=== PATIENT | female | born 1935 | race Caucasian/White ===

== ENCOUNTER → 2016-12-05 | Outpatient (REF) | payer MEDICARE, BC ==
[~2016-12-05] MED LIST: ATOR1TAB19 PO; CIPR500T89 PO; FLAG500T PO; IBUPOTC PO; LISI10TA2 PO; SALI0.653; SYNT75TA PO
== END ==
LOC: M LAB REF 12:47
PROVIDERS: ATTEND Nurse Practitioner Adult Health
DX: J02.9 Acute pharyngitis, unspecified (principal)

== ENCOUNTER 2016-12-08 21:06 | Inpatient (IN) | payer MEDICARE, BC ==
[~2016-12-08] VITALS: Ht 157.5 cm; Wt 67.2 kg
[2016-12-08] MEDS ORDERED: NS 1,000 ML IV ONE (21:45)
[2016-12-08 21:53] LABS: INR 0.92
[2016-12-08 22:03] LABS: ALBUMIN/GLOBULIN RATIO 0.98 (1.00-1.93); ALKALINE PHOSPHATASE 105 U/L (45-117); ALT/SGPT 25 U/L (12-78); ANION GAP 10 MEQ/L (8-16); AST/SGOT 16 U/L (15-37); BILIRUBIN,DIRECT < 0.1 MG/DL (0.0-0.2); BILIRUBIN,TOTAL 0.3 MG/DL (0.2-1.0); BLOOD UREA NITROGEN 26 MG/DL (7-18); CALCIUM LEVEL 9.2 MG/DL (8.8-10.2); CARBON DIOXIDE LEVEL 27 MEQ/L (21-32); CHLORIDE LEVEL 101 MEQ/L (98-107); CREATININE FOR GFR 1.29 MG/DL (0.55-1.02); GLOMERULAR FILTRATION RATE 42.1 (>32); GLUCOSE, FASTING 180 MG/DL (83-110); POTASSIUM SERUM 3.8 MEQ/L (3.5-5.1); SODIUM LEVEL 138 MEQ/L (136-145); TOTAL PROTEIN 8.1 GM/DL (6.4-8.2)
[2016-12-08 22:05] LABS: MEAN CORPUSCULAR HEMOGLOBIN 29.7 pg (27.0-33.0); MEAN CORPUSCULAR HGB CONC 32.3 g/dl (32.0-36.5); MEAN CORPUSCULAR VOLUME 91.8 fl (80.0-96.0); PLATELET COUNT, AUTOMATED 342 k/mm3 (150-450); RED CELL DISTRIBUTION WIDTH 14.5 % (11.5-14.5); WHITE BLOOD COUNT 19.6 K/mm3 (4.0-10.0)
[2016-12-08 22:27] LABS: BANDS 13 % (< 11); EOSINOPHILS 1 % (0-5)
[2016-12-08] MEDS ORDERED: ISOVUE-370 76% 100ML VIAL (Q9967) As Ordered ONE (23:35)
[2016-12-09] VITALS (7 sets, daily range): BP systolic 119–169; BP diastolic 52–72
--- NOTE | 2016-12-09 00:20 | REPUSA ---
CLINICAL HISTORY: Abdominal pain. TECHNIQUE: Multiple axial, sagittal and coronal CT images were obtained through the abdomen and pelvi s after administration of oral and intravenous contrast material. COMMENTS: Small sliding hiatal hernia. Fluid-filled small bowels. Uncomplicated colonic diverticulosis. Mildly thickened bladder. The liver is mildly enlarged decreased attenuation without mass or defect. There is no intra or extra hepatic biliary ductal dilatation. The spleen is normal. The gallbladder is within normal limits. The pancreas is of normal contour and attenuation characteristics. There is no evidence of adrenal mass. Both kidneys demonstrate prompt and equal nephrograms. 3.5 cm left renal simple cyst. The kidneys are normal in size, shape and configuration. There is no evidence of renal or ureteral mass. No renal or ureteral calculi are identified. There is no hydroureter or hydronephrosis. No evidence for appendicitis. There is no bowel wall thickening. No evidence for small or large mahin l obstruction. There is no evidence of abdominal ascites or lymphadenopathy. There is no evidence of intrinsic or extrinsic bladder mass. There is no pelvic ascites or lymphadeno amber. Images of the lung bases show no evidence of pleural or parenchymal mass. There are no pleural effusi ons. 3.8 cm left lower lobe bulla. The bony structures are free of lytic or blastic lesions. Multilevel degenerative changes are seen in volving the thoracolumbar spine. Scattered calcifications are seen involving the aorta and major bran ches compatible with atherosclerosis. IMPRESSION: Enteritis. Uncomplicated diverticulosis. Mild hepatomegaly with fat infiltration. Thickened bladder. Underdistention versus mild cystitis. Small sliding-type hiatal hernia. Thank you for your kind referral of this patient.
[2016-12-09] MEDS ORDERED: CIPROFLOXACIN 400 MG in APPROPRIATE DILUENT 1 EA IV ONE (00:30)
[2016-12-09] MEDS ORDERED: metroNIDAZOLE 500 MG in APPROPRIATE DILUENT 1 EA IV ONE (00:30)
--- NOTE | 2016-12-09 00:30 | REPUSA ---
CLINICAL HISTORY: Swelling. TECHNIQUE: Multiple axial CT images were obtained through the neck with IV contrast material. MPR cor onal and sagittal sequences were obtained. COMMENTS: Bilateral mildly prominent submandibular lymph nodes with the largest on the left side measuring 1.4 cm. The oropharyngeal soft tissues are normal and bilaterally symmetric. The piriform sinuses are normal. There is no supra or infraglottic laryngeal mass. The proximal trachea is normal. There is no paravertebral soft tissue mass. The salivary glands are normal. The paravertebral soft ti ssue space is normal. Limited images through the posterior fossa demonstrate no evidence for tonsilar herniation. Evaluation of the visualized lung apices reveals no evidence for abnormality. There is no evidence for abnormal enhancement. Bilateral changes of bronchitis. Bilateral apical pulmonary consolidations. IMPRESSION: Bilateral mildly prominent submandibular lymph nodes with the largest on the left side measuring 1.4 cm. Thank you for your kind referral of this patient.
[2016-12-09] MEDS ORDERED: NS 1,000 ML IV ONE (00:45)
[2016-12-09] MEDS ORDERED: METOCLOPRAMIDE INJ 10MG/2ML VIAL (J2765) IV PRN (01:00)
[2016-12-09] MEDS ORDERED: IBUPOTC PO (01:49)
[2016-12-09] MEDS ORDERED: SYNT75TA PO (01:49)
[2016-12-09] MEDS ORDERED: SALI0.653 (01:49)
[2016-12-09] MEDS ORDERED: LISI10TA2 PO (01:49)
[2016-12-09] MEDS ORDERED: ATOR1TAB19 PO (01:49)
[2016-12-09] MEDS: NS 1,000 ML IV SCH ×2 (03:29→14:55)
[2016-12-09 05:20] LABS: BASO % 0.1 % (0.0-1.0); EOS % 0.1 % (0.0-3.0); LARGE UNSTAINED CELL # 0.1 K/mm3 (0.0-0.4); LARGE UNSTAINED CELL % 0.8 % (0.0-4.0); LYMPH # 0.3 K/mm3 (1.5-4.5); LYMPH % 2.4 % (24.0-44.0); MEAN CORPUSCULAR HEMOGLOBIN 29.4 pg (27.0-33.0); MEAN CORPUSCULAR HGB CONC 32.7 g/dl (32.0-36.5); MEAN CORPUSCULAR VOLUME 89.8 fl (80.0-96.0); MONO # 0.3 K/mm3 (0.0-0.8); MONO % 2.5 % (0.0-5.0); NEUTROPHILS # 11.9 K/mm3 (1.8-7.7); NEUTROPHILS % 94.1 % (36.0-66.0); PLATELET COUNT, AUTOMATED 271 k/mm3 (150-450); RED CELL DISTRIBUTION WIDTH 14.5 % (11.5-14.5); WHITE BLOOD COUNT 12.6 K/mm3 (4.0-10.0)
[2016-12-09 05:31] LABS: MAGNESIUM LEVEL 1.8 MG/DL (1.8-2.4)
[2016-12-09] MEDS: LEVOTHYROXINE 0.075 MG TAB (75 MCG) PO SCH (06:33)
--- NOTE | 2016-12-09 06:50 | ECGEPIP ---
Stationary ECG Study [facility] - ED Test Date: 2016-12-08 Pat Name: EL STOVALL Department: Room: [place] [address] Gender: F Flatbed Owner Operator: SorensonB: [id number] Requested By: BALJIT Singh Order Number: [id number] Reading MD: Ozzie Eldridge Measurements Intervals [place] Rate: 109 P: NM: 0 QRS: 66 QRSD: 101 T: 59 QT: 340 QTc: 458 Interpretive Statements ATRIAL FIBRILLATION WITH RAPID VENTRICULAR RESPONSE NO PRIORS Electronically Signed On 12-09-2016 6:49:45 EDT by Ozzie Eldridge
--- NOTE | 2016-12-09 07:57 | HPE ---
DATE OF ADMISSION: 12/08/2016 PRIMARY CARE PROVIDER: Dr. Luca Shaikh. CHIEF COMPLAINT: Diarrhea since 5:00 pm on 12/08/2016 and one episode of syncope at home while having bowel movement. PAST MEDICAL HISTORY: Hypertension. Hyperlipidemia. Hypothyroidism. Gastroesophageal reflux disease. 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 Arthritis. Chronic dry eyes. Allergies. Cataracts. History of breast cancer times two. Osteoporosis. HISTORY OF PRESENT ILLNESS: This is an 81-year-old female who lives alone who was in her usual state of health. Yesterday, she had some left over chili for lunch. After that, she had a little bit of gas but otherwise felt well. Then at around 5:00 pm, while she was watching television, she suddenly felt discomfort in her belly and had to nagy to the bathroom and starting having diarrhea. She had diarrhea innumerable times. During one of the times, while she was sitting on the commode, she became cold, clammy, hot, and passed out and fell on the floor. It took her a couple of minutes to get off of the floor and then she went to her bed and laid down. She went to the bathroom a couple more times but after that she was feeling very weak and hardly could get up. She was dizzy and lightheaded so she continued to lay down in bed and her stool was dripping out of her in an uncontrolled fashion. She became incontinent of stool. At that point, she called an ambulance and was brought to the emergency room. In the emergency department, she continued to have diarrhea several times. Stool was collected and sent for examination. The patient was noted to be very tachycardic on arrival to about 118 to 125. She was noted to have an elevated white count of 19.6 and elevated creatinine of 1.2. She was found to be dehydrated and started on IV fluids. CT scan of the abdomen was done which revealed enteritis. There was also diverticulosis but no signs of diverticulitis. Sliding type hiatal hernia. The patient was started on Cipro and Flagyl and the hospital service was consulted for admission for enteritis, diarrhea, dehydration and syncope. PAST SURGICAL HISTORY: Mastectomy for breast cancer on the right in 1997. Left mastectomy in 1971. Colonoscopy in 2001. Breast implant removal in 2005. Toe surgery repair in 2011. ALLERGIES: DRISDOL - nausea, vomiting. FAMILY HISTORY: Father with history of stomach cancer. Mother with history of lung cancer. Siblings: sister with breast cancer. SOCIAL HISTORY: Former smoker who quit smoking greater than 10 years ago. Does not abuse alcohol or recreational drugs. HOME MEDICATIONS: - atorvastatin 5 mg daily - Ibuprofen 200 mg by mouth at bedtime as needed pain - Synthroid 75 mcg daily - lisinopril/hydrochlorothiazide one tablet by mouth daily - saline nasal spray REVIEW OF SYSTEMS: The patient denied any fever or chills. Denied any abdominal pain. Did have one episode of vomiting. Did not have any nausea. Did not have any hematochezia or melena. Denies any dysuria or hematuria. Denies any chest pain, any cough or phlegm. PHYSICAL EXAMINATION: VITAL SIGNS: Temperature 97.3, pulse 114, blood pressure 37/63, pulse oxymetry 94% in room air. GENERAL: The patient awake, alert, oriented times three in no acute distress. HEENT: Normocephalic, atraumatic. Moist mucous membranes. Anicteric eyes. CHEST: Clear to auscultation. CARDIOVASCULAR: S1, S2 regular. No rales, murmur, or gallop. ABDOMEN: Mildly distended, obese, soft, nontender. Bowel sounds hyperperistaltic. EXTREMITIES: No edema. LABORATORY DATA: WBC 19.6, hemoglobin 13.9, platelet 342. Sodium 138, potassium 3.8, chloride 101, bicarbonate 27, BUN 26, creatinine 1.29, glucose 118. Liver function tests are normal. Lipase 106. INR 0.92. Radiologic CT scan of the abdomen reviewed. ASSESSMENT: This is an 81-year-old female admitted for diarrhea, dehydration due to enteritis and syncope. PLAN: For diarrhea and dehydration and enteritis, will continue the patient on Cipro and Flagyl. Will continue with IV fluids. For hydration, clear liquid diet. Will followup tests from the gastrointestinal panel results and modify treatment accordingly. Hypertension: The patient is on lisinopril and hydrochlorothiazide at home. However, at this point, the patient appears dehydrated and blood pressure is also in the low normal range so we will hold lisinopril and hydrochlorothiazide now. Hypothyroid: Will continue with Synthroid. Hyperlipidemia: Will continue with atorvastatin. Deep venous thrombosis prophylaxis has been ordered.
[2016-12-09] MEDS ORDERED: ATORVASTATIN 10 MG TAB PO SCH (09:00)
--- NOTE | 2016-12-09 09:21 | REP ---
ABDOMINAL SERIES: Cross table lateral and supine film of the abdomen and pelvis demonstrate no evidence of free air and no compelling evidence for obstruction. Air is scattered throughout the GI tract without significantly dilated small bowel loops. There appear to be phleboliths in the pelvis. There are mild degenerative changes of the spine. An accompanying view of the chest demonstrates mild chronic interstitial fibrosis with mild apical pleural thickening. No infiltrates are seen. The heart is not enlarged. There is prominent soft tissue in the aortopulmonic window which may represent some degree of dilatation of the thoracic aorta. I cannot exclude underlying adenopathy. CT of the chest with IV contrast is recommended. IMPRESSION: No free air or obstruction. Possible dilated aortic arch or underlying adenopathy. Recommend CT chest with IV contrast. Signed by Josh Nava MD 12/10/2016 04:00 P
[2016-12-09] MEDS: ENOXAPARIN 30 MG/0.3 ML SYR (J1650) SC SCH (09:32)
[2016-12-09] MEDS: metroNIDAZOLE 500 MG in APPROPRIATE DILUENT 1 EA IV SCH ×2 (09:32→18:20)
--- NOTE | 2016-12-09 12:03 | IPNPDOC ---
Subjective Date Seen The patient was seen on 12/09/16. Subjective Chief Complaint/HPI The patient is a 81-year-old female admitted with a reason for visit of Enteritis, Syncope. General: Denies: ROS Unobtainable, Chills, Night Sweats, Fatigue, Malaise, Normal Appetite, Other Symptoms Constitutional: Denies: Chills, Fever, Malaise, Night Sweats, Weakness, Fatigue , Weight Loss, Lethargy, Other Eyes: Denies: Pain, Vision change, Conjunctivae inflammation, Eyelid inflammation, Redness, Other ENT: Denies: Head Aches, Ear Pain, Dysphagia, Sinus Congestion, Post Nasal Drip , Sore Throat, Epistaxis, Other Symptoms Skin: Denies: Rash, Lesions, Jaundice, Bruising, Itching, Dry, Breakdown, Nail Changes, Other Pulmonary: Denies: Dyspnea, Cough, Pleuritic Chest Pain, Other Symptoms Cardiovascular: Denies: Chest Pain, Palpitations, Orthopnea, Paroxysmal Noc. Dyspnea, Edema, Lt Headedness, Other Symptoms Gastrointestinal: Reports: Diarrhea, Denies: Nausea, Vomiting, Abdominal Pain, Constipation, Melena, Hematochezia , Other Symptoms Genitourinary: Reports: Frequency, Denies: Dysuria, Incontinence, Hematuria, Retention, Other Symptoms Objective Physical Examination General Exam: Positive: Alert, Cooperative, No Acute Distress Eye Exam: Positive: PERRLA, Conjunctiva & lids normal, EOMI, Negative: Sclera icteric ENT Exam: Positive: Atraumatic Neck Exam: Positive: Supple Chest Exam: Positive: Clear to auscultation, Normal air movement Heart Exam: Positive: Tachycardic, Regular Rhythm Telemetry: Positive: Tachycardia Abdomen Exam: Positive: Normal bowel sounds, Soft, Negative: Tenderness Extremity Exam: Negative: Edema Psych Exam: Positive: Oriented x 3 Assessment /Plan Problems (1) Enteritis Status: Acute Response to Treatment: Improving Discussed With: Patient Problem Specific Plan: Monitor Clinically, Repeat Labs Problem Text: Continue IV antibiotics, IV fluids. (2) Diarrhea Status: Acute Response to Treatment: Improving Discussed With: Patient Problem Specific Plan: Monitor Clinically, Repeat Labs (3) Syncope Status: Acute Discussed With: Patient Problem Specific Plan: Monitor Clinically, Repeat Tests (4) HTN (hypertension) Status: Chronic Discussed With: Patient Problem Specific Plan: Monitor Clinically (5) Hyperlipidemia Status: Chronic Discussed With: Patient (6) GERD (gastroesophageal reflux disease) Status: Chronic Discussed With: Patient (7) Hypothyroidism Status: Chronic Discussed With: Patient Problem Specific Plan: Monitor Clinically, Repeat Labs Problem Text: Check thyroid panel (8) Breast cancer Status: Chronic Discussed With: Patient Problem Specific Plan: Monitor Clinically Problem Text: s/p chemo/RT and b/l mastectomy submandibular lymph nodes noted on ct neck could likely follow up as o/p with oncology (9) Tachycardia Status: Chronic Discussed With: Patient Problem Specific Plan: Monitor Clinically Problem Text: Patient states known history of chronic tachycardia. Will check thyroid panel. (10) Basal cell carcinoma Status: Chronic Discussed With: Patient Problem Text: History of basal cell cancer of the forehead. Plan/VTE VTE Prophylaxis Ordered?: Yes Plan IVF: Continue Diet: Continue Current Activity: Continue Current Therapy: PT Diagnostics: Repeat Labs in AM Anticipated Discharge: Home With Services Iv antibiotics. IV fluids. 2D echo pending. orthostatics. Thyroid panel. Monitor telemetry. Patient lives alone, PFS for possible home health. PT eval/treat VS, I&O, 24H, [facility] Vital Signs/I&O Vital Signs Date Time Temp Pulse Resp B/P (MAP) Pulse Ox O2 Delivery O2 Flow Rate FiO2 12/09/16 08:00 99.1 76 20 119/57 (77) 97 Room Air I&O- Last 24 Hours up to 6 AM 12/09/16 06:00 Intake Total 2550 ml Output Total 0 ml Balance 2550 ml Laboratory Data 24H LABS Laboratory Tests 2 12/08/16 21:19: Neutrophils 78H, Band Neutrophils 13H, Lymphocytes (Manual) 1L, Monocytes ( Manual) 7, Eosinophils (Manual) 1, Platelet Estimate NORMAL, Red Blood Cell Morphology NORMAL, Prothrombin Time 12.5, Prothromb Time International Ratio 0.92, Activated Partial Thromboplast Time 23.0L, Anion Gap 10, Glomerular Filtration Rate 42.1, Calcium Level 9.2, Aspartate Amino Transf (AST/SGOT) 16, Alanine Aminotransferase (ALT/SGPT) 25, Alkaline Phosphatase 105, Total Bilirubin 0.3, Direct Bilirubin < 0.1, Total Protein 8.1, Albumin 4.0, Albumin/ Globulin Ratio 0.98L, Lipase 106 12/09/16 04:23: White Blood Count 12.6H, Red Blood Count 3.84L, Hemoglobin 11.3#L, Hematocrit 34.5L, Mean Corpuscular Volume 89.8, Mean Corpuscular Hemoglobin 29.4, Mean Corpuscular Hemoglobin Concent 32.7, Red Cell Distribution Width 14.5, Platelet Count 271, Neutrophils (%) (Auto) 94.1H, Lymphocytes (%) (Auto) 2.4L, Monocytes (%) (Auto) 2.5, Eosinophils (%) (Auto) 0.1, Basophils (%) (Auto) 0.1, Neutrophils # (Auto) 11.9H, Lymphocytes # (Auto) 0.3L, Monocytes # (Auto) 0.3, Eosinophils # (Auto) 0.0, Basophils # (Auto) 0.0, Large Unclassified Cells % 0.8 , Large Unclassified Cells # 0.1, Magnesium Level 1.8 CBC/BMP Laboratory Tests 12/08/16 21:19 Red Blood Count 4.67, Mean Corpuscular Volume 91.8, Mean Corpuscular Hemoglobin 29.7, Mean Corpuscular Hemoglobin Concent 32.3, Red Cell Distribution Width 14.5 12/09/16 04:23 Red Blood Count 3.84 L, Mean Corpuscular Volume 89.8, Mean Corpuscular Hemoglobin 29.4, Mean Corpuscular Hemoglobin Concent 32.7, Red Cell Distribution Width 14.5, Neutrophils (%) (Auto) 94.1 H, Lymphocytes (%) (Auto) 2.4 L, Monocytes (%) (Auto) 2.5, Eosinophils (%) (Auto) 0.1, Basophils (%) (Auto ) 0.1, Neutrophils # (Auto) 11.9 H, Lymphocytes # (Auto) 0.3 L, Monocytes # ( Auto) 0.3, Eosinophils # (Auto) 0.0, Basophils # (Auto) 0.0 Microbiology Microbiology 12/08/16 Blood Culture, Received Pending 12/08/16 Blood Culture, Received Pending 12/09/16 Gastrointestinal Tract Panel (PCR) - Final, Complete KANU MONTE MD December 09, 2016 12:03
[2016-12-09] MEDS: CIPROFLOXACIN 400 MG in APPROPRIATE DILUENT 1 EA IV SCH (13:16)
[2016-12-09 13:56] LABS: THYROXINE (T4) 9.9 UG/DL (4.5-12.0)
--- NOTE | 2016-12-09 15:57 | REPUSA ---
CT of the head Clinical history: trauma. Protocol: Multiple axial CT images obtained with 5 mm slice thickness were obtained through the head without administration of contrast. Findings: The ventricles and sulci are symmetric but prominent in size bilaterally. There are periven tricular areas of low attenuation throughout the deep white matter. There is no evidence of acute hem orrhage or infarct. There is no midline shift, mass effect, or extra-axial fluid collection. The osse ous structures are unremarkable. The visualized paranasal sinuses and mastoid air cells are clear. Impression: No acute hemorrhage or infarct. Findings are consistent with minimal age-related atrophy and chronic small vessel ischemic disease.
[2016-12-09] MEDS: ATORVASTATIN 5MG PER 1/2 TABLET PO SCH (21:22)
[2016-12-10 06:00] VITALS: BP 164/92
[2016-12-10] MEDS: LEVOTHYROXINE 0.075 MG TAB (75 MCG) PO SCH (06:00)
[2016-12-10] MEDS: NS 1,000 ML IV SCH ×2 (06:00→08:45)
[2016-12-10] MEDS: CIPROFLOXACIN 400 MG in APPROPRIATE DILUENT 1 EA IV SCH ×2 (06:05→12:18)
[2016-12-10] MEDS: metroNIDAZOLE 500 MG in APPROPRIATE DILUENT 1 EA IV SCH ×2 (06:08→10:38)
[2016-12-10 06:45] LABS: BASO % 0.1 % (0.0-1.0); EOS # 0.3 K/mm3 (0.0-0.50); EOS % 3.2 % (0.0-3.0); LARGE UNSTAINED CELL # 0.2 K/mm3 (0.0-0.4); LARGE UNSTAINED CELL % 2.5 % (0.0-4.0); LYMPH # 1.4 K/mm3 (1.5-4.5); LYMPH % 17.1 % (24.0-44.0); MEAN CORPUSCULAR HEMOGLOBIN 29.2 pg (27.0-33.0); MEAN CORPUSCULAR HGB CONC 32.4 g/dl (32.0-36.5); MEAN CORPUSCULAR VOLUME 90.1 fl (80.0-96.0); MONO # 0.5 K/mm3 (0.0-0.8); MONO % 5.6 % (0.0-5.0); NEUTROPHILS % 71.4 % (36.0-66.0); PLATELET COUNT, AUTOMATED 268 k/mm3 (150-450); RED CELL DISTRIBUTION WIDTH 14.7 % (11.5-14.5); WHITE BLOOD COUNT 8.4 K/mm3 (4.0-10.0)
[2016-12-10 06:55] LABS: ANION GAP 8 MEQ/L (8-16); BLOOD UREA NITROGEN 9 MG/DL (7-18); CALCIUM LEVEL 7.9 MG/DL (8.8-10.2); CARBON DIOXIDE LEVEL 22 MEQ/L (21-32); CHLORIDE LEVEL 114 MEQ/L (98-107); CREATININE FOR GFR 0.81 MG/DL (0.55-1.02); GLOMERULAR FILTRATION RATE > 60.0 (>32); GLUCOSE, FASTING 94 MG/DL (83-110); POTASSIUM SERUM 3.5 MEQ/L (3.5-5.1); SODIUM LEVEL 144 MEQ/L (136-145)
[2016-12-10] MEDS: ENOXAPARIN 30 MG/0.3 ML SYR (J1650) SC SCH (09:00)
[2016-12-10] MEDS: LISINOPRIL 10 MG TAB PO SCH (11:51)
[2016-12-10] MEDS: LACTOBACILLUS ACIDOPHILUS CAP (BACID) PO SCH ×2 (12:18→21:18)
[2016-12-10 14:00] VITALS: BP 159/74
--- NOTE | 2016-12-10 17:19 | IPNPDOC ---
Subjective Date Seen The patient was seen on 12/10/16. Subjective Chief Complaint/HPI The patient is a 81-year-old female admitted with a reason for visit of Enteritis, Syncope. Objective Physical Examination General Exam: Positive: Alert, Cooperative, No Acute Distress Eye Exam: Positive: PERRLA, Conjunctiva & lids normal, EOMI ENT Exam: Positive: Atraumatic Neck Exam: Positive: Supple Chest Exam: Positive: Clear to auscultation, Normal air movement Heart Exam: Positive: Tachycardic, Regular Rhythm Telemetry: Positive: Tachycardia Abdomen Exam: Positive: Normal bowel sounds, Soft Extremity Exam: Negative: Edema Psych Exam: Positive: Oriented x 3 Assessment /Plan Problems (1) Enteritis Status: Acute Response to Treatment: Improving Discussed With: Patient Problem Specific Plan: Monitor Clinically, Repeat Labs Problem Text: Switch to PO antibiotics, PO fluids. Advance diet and monitor (2) Diarrhea Status: Acute Response to Treatment: Improving Discussed With: Patient Problem Specific Plan: Monitor Clinically, Repeat Labs (3) Syncope Status: Acute Discussed With: Patient Problem Specific Plan: Monitor Clinically, Repeat Tests Problem Text: associated with significant diarrhea echo result pending (4) HTN (hypertension) Status: Chronic Discussed With: Patient Problem Specific Plan: Monitor Clinically Problem Text: restart home lisinopril (5) Hyperlipidemia Status: Chronic Discussed With: Patient (6) GERD (gastroesophageal reflux disease) Status: Chronic Discussed With: Patient (7) Hypothyroidism Status: Chronic Discussed With: Patient Problem Specific Plan: Monitor Clinically, Repeat Labs Problem Text: TSH wnl (8) Breast cancer Status: Chronic Discussed With: Patient Problem Specific Plan: Monitor Clinically Problem Text: s/p chemo/RT and b/l mastectomy submandibular lymph nodes noted on ct neck could likely follow up as o/p with oncology/primary care (9) Tachycardia Status: Chronic Discussed With: Patient Problem Specific Plan: Monitor Clinically Problem Text: Patient states known history of chronic tachycardia. Will check thyroid panel. (10) Basal cell carcinoma Status: Chronic Discussed With: Patient Problem Text: History of basal cell cancer of the forehead. Plan/VTE VTE Prophylaxis Ordered?: Yes Plan IVF: Continue Diet: Continue Current Activity: Continue Current Therapy: PT Diagnostics: Repeat Labs in AM Anticipated Discharge: Home With Services VS, I&O, 24H, Fishbone Vital Signs/I&O Vital Signs Date Time Temp Pulse Resp B/P (MAP) Pulse Ox O2 Delivery O2 Flow Rate FiO2 12/10/16 14:00 98.4 107 18 159/74 (102) 98 Room Air I&O- Last 24 Hours up to 6 AM 12/10/16 06:00 Intake Total 3555 ml Output Total 975 ml Balance 2580 ml Laboratory Data 24H LABS Laboratory Tests 2 12/09/16 18:25: Urine Appearance CLEAR, Urine Color STRAW, Urine pH 5.0, Urine Specific [place] 1.006, Urine Protein NEGATIVE, Urine Glucose (UA) NEGATIVE, Urine Ketones NEGATIVE, Urine Urobilinogen 0.2, Urine Bilirubin NEGATIVE, Urine Leukocyte Esterase TRACEH, Urine Blood 2+H, Urine Nitrite NEGATIVE, Urine WBC (Auto) 1, Urine RBC (Auto) 2, Urine Hyaline Casts (Auto) 0, Urine Bacteria (Auto) NEGATIVE , Urine Squamous Epithelial Cells 0, Urine Amorphous Sediment SMALLH, Urine Mucus (Auto) SMALL, Urine Sperm (Auto) 12/10/16 06:12: White Blood Count 8.4, Red Blood Count 3.63L, Hemoglobin 10.6L, Hematocrit 32.7L , Mean Corpuscular Volume 90.1, Mean Corpuscular Hemoglobin 29.2, Mean Corpuscular Hemoglobin Concent 32.4, Red Cell Distribution Width 14.7H, Platelet Count 268, Neutrophils (%) (Auto) 71.4H, Lymphocytes (%) (Auto) 17.1L, Monocytes (%) (Auto) 5.6H, Eosinophils (%) (Auto) 3.2H, Basophils (%) (Auto) 0.1 , Neutrophils # (Auto) 6.0, Lymphocytes # (Auto) 1.4L, Monocytes # (Auto) 0.5, Eosinophils # (Auto) 0.3, Basophils # (Auto) 0.0, Large Unclassified Cells % 2.5 , Large Unclassified Cells # 0.2, Anion Gap 8, Glomerular Filtration Rate > 60.0 , Blood Urea Nitrogen 9#, Creatinine 0.81, Sodium Level 144, Potassium Level 3.5 , Chloride Level 114H, Carbon Dioxide Level 22, Calcium Level 7.9L CBC/BMP Laboratory Tests 12/10/16 06:12 Red Blood Count 3.63 L, Mean Corpuscular Volume 90.1, Mean Corpuscular Hemoglobin 29.2, Mean Corpuscular Hemoglobin Concent 32.4, Red Cell Distribution Width 14.7 H, Neutrophils (%) (Auto) 71.4 H, Lymphocytes (%) (Auto ) 17.1 L, Monocytes (%) (Auto) 5.6 H, Eosinophils (%) (Auto) 3.2 H, Basophils (% ) (Auto) 0.1, Neutrophils # (Auto) 6.0, Lymphocytes # (Auto) 1.4 L, Monocytes # (Auto) 0.5, Eosinophils # (Auto) 0.3, Basophils # (Auto) 0.0, Calcium Level 7.9 L Microbiology Microbiology 12/08/16 Blood Culture - Preliminary, Resulted No growth after 24 hours . All specim... 12/08/16 Blood Culture - Preliminary, Resulted No growth after 24 hours . All specim... 12/09/16 Stool Lactoferrin - Final, Complete 12/09/16 Gastrointestinal Tract Panel (PCR) - Final, Complete 12/09/16 Urine Culture, Received Pending OSVALDO HARTMAN MD December 10, 2016 17:19
[2016-12-10] MEDS: ATORVASTATIN 5MG PER 1/2 TABLET PO SCH (21:18)
[2016-12-10] MEDS: metroNIDAZOLE (FLAGYL) 500 MG TAB PO SCH (21:18)
[2016-12-10 22:00] VITALS: BP 152/85
[2016-12-11] MEDS: metroNIDAZOLE (FLAGYL) 500 MG TAB PO SCH (05:36)
[2016-12-11] MEDS: LEVOTHYROXINE 0.075 MG TAB (75 MCG) PO SCH (05:37)
[2016-12-11 05:59] LABS: BASO % 0.5 % (0.0-1.0); EOS # 0.3 K/mm3 (0.0-0.50); EOS % 5.3 % (0.0-3.0); LARGE UNSTAINED CELL # 0.1 K/mm3 (0.0-0.4); LARGE UNSTAINED CELL % 2.1 % (0.0-4.0); LYMPH # 1.6 K/mm3 (1.5-4.5); LYMPH % 23.2 % (24.0-44.0); MEAN CORPUSCULAR HEMOGLOBIN 29.2 pg (27.0-33.0); MEAN CORPUSCULAR HGB CONC 33.4 g/dl (32.0-36.5); MEAN CORPUSCULAR VOLUME 87.4 fl (80.0-96.0); MONO # 0.4 K/mm3 (0.0-0.8); MONO % 6.2 % (0.0-5.0); NEUTROPHILS # 3.9 K/mm3 (1.8-7.7); NEUTROPHILS % 62.6 % (36.0-66.0); PLATELET COUNT, AUTOMATED 259 k/mm3 (150-450); RED CELL DISTRIBUTION WIDTH 14.7 % (11.5-14.5); WHITE BLOOD COUNT 6.3 K/mm3 (4.0-10.0)
[2016-12-11 06:00] VITALS: BP 134/61
[2016-12-11] MEDS ORDERED: CIPROFLOXACIN 500 MG TAB PO SCH (06:00)
[2016-12-11 06:08] LABS: ANION GAP 8 MEQ/L (8-16); BLOOD UREA NITROGEN 6 MG/DL (7-18); CALCIUM LEVEL 7.5 MG/DL (8.8-10.2); CARBON DIOXIDE LEVEL 24 MEQ/L (21-32); CHLORIDE LEVEL 112 MEQ/L (98-107); CREATININE FOR GFR 0.78 MG/DL (0.55-1.02); GLOMERULAR FILTRATION RATE > 60.0 (>32); GLUCOSE, FASTING 97 MG/DL (83-110); POTASSIUM SERUM 3.3 MEQ/L (3.5-5.1); SODIUM LEVEL 144 MEQ/L (136-145)
[2016-12-11 09:05] VITALS: BP 143/68
[2016-12-11] MEDS: LISINOPRIL 10 MG TAB PO SCH (09:05)
[2016-12-11] MEDS: ENOXAPARIN 30 MG/0.3 ML SYR (J1650) SC SCH (09:05)
[2016-12-11] MEDS: LACTOBACILLUS ACIDOPHILUS CAP (BACID) PO SCH (09:05)
--- NOTE | 2016-12-11 09:16 | ECHO ---
DATE OF PROCEDURE: 12/09/2016 AGE: 81 GENDER: Female REFERRING PHYSICIAN: Dr. Anibal Perkins. HEIGHT: 62 inches. WEIGHT: 138 pounds. BODY SURFACE AREA: 1.64 sq m. INPATIENT: PCU Room 3229. INDICATION: Syncope. MEASUREMENTS: 2D MEASUREMENTS: RV - 3.8 cm LV- 3.2 cm Septum - 1.0 cm Posterior wall - 1.0 cm Aortic root - 3.1 cm LA - 3.2 cm LVEF - 75% DOPPLER MEASUREMENTS: AV - 1.8 m/s LVOT - 1.0 m/s MV-E: 89 A: 86 EA ratio 1.0 Early mitral deacceleration time 148 ms E-prime - 6 A-prime - 12 E/E prime ratio 14 PV - 1.1 m/s Pulmonary artery acceleration time 134 ms RVSP - 46-49 mmHg IVC - 1.9 cm COMMENT: Underlying sinus tachycardia with frequent PAC versus multifocal atrial tachycardia. Somewhat technically challenging study but diagnostically useful information was still obtained. Normal left atrial and left ventricular sizes. Right heart chamber sizes appear to be upper limits of normal to mildly dilated. Normal LV wall thickness. On real-time imaging from the parasternal and apical projections, wall motion appeared to be symmetrical and normal to hyperkinetic. Mildly thickened mitral annulus and leaflet edges but adequate leaflet excursion and no posterior systolic buckling. Three equal size aortic cusps with mild cusp edge thickening but adequate cusp separation. Normal aortic root size. No apparent intracardiac mass or pericardial effusion. Color flow Doppler study taken from the parasternal and apical projection showed trace aortic, mild mitral and mild to moderate tricuspid insufficiency. Guided continuous wave Doppler of her aortic valve showed a normal peak systolic velocity against LV outflow tract obstruction. Pulsed and continuous wave Doppler of her LV inflow tract taken from the apical four-chamber projection showed varying filling velocities related to her arrhythmia. No obvious sign of LV diastolic dysfunction. Current estimated mean left atrial pressure was upper limits of normal. Pulsed and continuous wave Doppler of her pulmonary trunk showed a normal peak systolic velocity against RV outflow tract obstruction. Guided continuous wave Doppler of her tricuspid valve allowed our estimation of her right ventricular systolic pressure (moderately increased). Her inferior vena cava was of normal size with normal respiratory collapse against an elevated central venous pressure at this time. CONCLUSIONS: Underlying sinus tachycardia with frequent PACs versus multifocal atrial tachycardia; not atrial fibrillation. Normal left ventricular size, wall thickness and hyperkinetic wall motion. Normal left atrial size and no clear Doppler evidence of an impairment of LV diastolic function. Current estimated mean left atrial pressure was within normal limits. At least borderline right heart chamber enlargement with normal contraction but Doppler evidence of moderate pulmonary hypertension. Normal IVC size and collapse against an elevated central venous pressure. Mild aortic valvular sclerosis with trace insufficiency. Mild mitral annular calcification with mild insufficiency. MTDD
[2016-12-11] MEDS ORDERED: CIPR500T89 PO (10:14)
[2016-12-11] MEDS ORDERED: FLAG500T PO (10:14)
[2016-12-11] MEDS ORDERED: POTASSIUM CHLORIDE 10 MEQ SR TABLET PO ONE (10:15)
--- NOTE | 2016-12-12 12:55 | DSES ---
DATE OF ADMISSION: 12/09/2016 DATE OF DISCHARGE: 12/11/2016 No specialists involved in her care. No complications during her stay. No procedures performed during her stay. DISCHARGE DIAGNOSES: 1. Enteritis. 2. Diarrhea. 3. Syncope. 4. Hypertension. 5. Hyperlipidemia. 6. Gastroesophageal reflux disease (GERD). 7. Hypothyroidism. 8. History of breast cancer. 9. Incidentally noted lymph nodes on CT scan of the neck. 10. Tachycardia. 11. Basal cell carcinoma. 12. Hypokalemia. SUMMARY OF HOSPITALIZATION: This is an 81-year-old who presented with a brief but intense episode of diarrhea, resulting in a syncopal event while having a bowel movement. She was brought to the hospital for evaluation and was admitted to the hospitalist service. She was found to be dehydrated and was started on IV fluids. CT scan of the abdomen showed enteritis. She was monitored on telemetry with no significant arrhythmia. She had a 2D echocardiogram during her stay which showed impaired left ventricular diastolic dysfunction, moderate pulmonary hypertension, preserved sytolic function. Stooling pattern improved quickly. She was started on Cipro and Flagyl and began to feel much better. She was tolerating a diet without pain. She was evaluated and cleared by physical therapy. On the day of discharge, she is feeling well. She has no complaints of pain, chest pain, shortness of breath. She feels ready to go home. I do answer a list of questions for her. She is an excellent list maker. Temperature is 98, pulse 84, respiratory rate 16, blood pressure 134/61, 95% on room air. She is awake, appropriately interactive. Breathing is symmetrical and rested. I:E ratio is 1:3. Heart is distant sounding, normal S1, S2. Abdomen is soft, doughy, nontender. LABORATORY DATA: Potassium is 3.3, creatinine 0.8. Hemoglobin 10.2, white cell count 6.3. DISCHARGE INSTRUCTIONS: Include the following: Followup with Dr. Shaikh 12/18/2016 at 1:15 p.m. Diet and activity as tolerated. DISCHARGE MEDICATIONS: Continue with: - ciprofloxacin 500 mg twice a day for five days - Flagyl 500 mg every eight hours for five day - atorvastatin 5 mg by mouth daily - Motrin as needed at bedtime at night for pain - Synthroid 75 mcg by mouth every morning daily - lisinopril/hydrochlorothiazide 05/15.5 one tablet by mouth daily - saline nasal spray twice a day as needed Please note that the patient did have incidentally noted bilateral, mildly prominent submandibular lymph nodes with the largest on the left side measuring 1.4 cm. This may require further outpatient workup as deemed clinically indicated.
== END 2016-12-11 13:49 | disposition home or self-care (01) | DRG 392 ==
LOC: EDBD 21:06 → M ED 22:03 → M ED INP 22:04 → M PCU 12-09 02:54 → OBSVTOIN 12-09 11:53 → M MSPAV 12-09 23:41
PROVIDERS: ADMIT Internal Medicine Nephrology; ATTEND Internal Medicine
DX: K52.9 Noninfective gastroenteritis and colitis, unspecified (principal); I10 Essential (primary) hypertension; E78.5 Hyperlipidemia, unspecified; E87.6 Hypokalemia; K21.9 Gastro-esophageal reflux disease without esophagitis; E03.9 Hypothyroidism, unspecified; R55 Syncope and collapse; Z85.3 Personal history of malignant neoplasm of breast; R00.0 Tachycardia, unspecified; E86.0 Dehydration; Z79.899 Other long term (current) drug therapy; Z85.828 Personal history of other malignant neoplasm of skin; M81.0 Age-related osteoporosis without current pathological fracture; Z88.8 Allergy status to other drugs, medicaments and biological substances; Z87.891 Personal history of nicotine dependence

== ENCOUNTER → 2016-12-31 | Outpatient (REF) | payer MEDICARE, BC | LOC: M SFHCPLAZ 12:17 | PROVIDERS: ATTEND Internal Medicine | DX: R29.898 Other symptoms and signs involving the musculoskeletal system (principal); Z53.8 Procedure and treatment not carried out for other reasons ==

== ENCOUNTER → 2017-01-27 | Outpatient (CLI) | payer MEDICARE, BC ==
--- NOTE | 2017-01-27 14:03 | REP ---
Clinical: Thyroid nodule and submandibular region. Technique: Real time carter scale and color evaluation using linear high frequency transducer. Comparison: 07/16/2013 Findings: The thyroid gland is normal in parenchymal echogenicity, contour and size. Right lobe measures 3.3 x 1.3 x 1.2 cm and includes 14 x 6 x 9 mm nonspecific mid pole nodule. Isthmus measures 2.5 mm in width. Left lobe measures 3.3 x 1.4 x 1.2 cm and includes 13 x 9 x 11 mm nonspecific mid pole nodule. Palpable submandibular lesions correspond to few lymph nodes measuring 15 x 7 x 13 mm maximal diameter. Impression: Right thyroid nodule unchanged. Left thyroid nodule relatively new compared to prior ultrasound. Findings are otherwise nonspecific. Signed by Nhan Tolentino MD 01/27/2017 01:53 P
== END ==
LOC: M RAD 12:38
PROVIDERS: ATTEND Internal Medicine
DX: R59.0 Localized enlarged lymph nodes (principal); E04.1 Nontoxic single thyroid nodule

== ENCOUNTER → 2017-01-31 | Outpatient (REF) | payer MEDICARE, BC ==
[~2017-01-31] MED LIST changes: +CIPR-249 PO; -CIPR500T89 PO; +SALI0.6523; -SALI0.653
[2017-01-31 11:45] LABS: MEAN CORPUSCULAR HEMOGLOBIN 29.6 pg (27.0-33.0); MEAN CORPUSCULAR HGB CONC 33.4 g/dl (32.0-36.5); MEAN CORPUSCULAR VOLUME 88.8 fl (80.0-96.0); RED CELL DISTRIBUTION WIDTH 14.7 % (11.5-14.5); WHITE BLOOD COUNT 5.9 K/mm3 (4.0-10.0)
[2017-01-31 11:56] LABS: ALBUMIN 3.9 GM/DL (3.2-5.2); ALBUMIN/GLOBULIN RATIO 1.18 (1.00-1.93); BILIRUBIN,TOTAL 0.5 MG/DL (0.2-1.0); CALCIUM LEVEL 9.5 MG/DL (8.8-10.2); CREATININE FOR GFR 1.02 MG/DL (0.55-1.02); GLOMERULAR FILTRATION RATE 55.2 (>32); POTASSIUM SERUM 4.8 MEQ/L (3.5-5.1); TOTAL PROTEIN 7.2 GM/DL (6.4-8.2)
== END ==
LOC: M SFHCPLAZ 08:34
PROVIDERS: ATTEND Internal Medicine
DX: K52.9 Noninfective gastroenteritis and colitis, unspecified (principal); I10 Essential (primary) hypertension; E78.00 Pure hypercholesterolemia, unspecified

== ENCOUNTER → 2017-02-07 | Outpatient (REF) | payer MEDICARE, BC ==
[2017-02-07 12:14] LABS: VITAMIN B12 LEVEL 369 PG/ML
[2017-02-07 12:15] LABS: FOLATE > 24.0 NG/ML
== END ==
LOC: M SFHCPLAZ 09:30
PROVIDERS: ATTEND Internal Medicine
DX: G62.9 Polyneuropathy, unspecified (principal); H61.23 Impacted cerumen, bilateral

== ENCOUNTER → 2017-04-01 | Outpatient (REF) | payer MEDICARE, BC ==
[2017-04-01 19:05] LABS: TOTAL PROTEIN 7.8 GM/DL (6.4-8.2)
[2017-04-02 13:21] LABS: ALBUMIN % 58.3 % (55.8-66.1)
[2017-04-02 13:22] LABS: ALBUMIN 4.55 GM/DL (3.29-5.55); GAMMA GLOBULIN % 12.9 % (11.1-18.8)
[2017-04-06 14:08] LABS: VITAMIN E LEVEL 22.8 mg/L (6.5-21.5)
== END ==
LOC: M LABNEURO 14:40
PROVIDERS: ATTEND Psychiatry & Neurology Neurology
DX: Z13.1 Encounter for screening for diabetes mellitus (principal); R20.0 Anesthesia of skin

== ENCOUNTER → 2017-08-06 | Outpatient (REF) | payer MEDICARE, BC ==
[2017-08-06 12:19] LABS: HEMATOCRIT 36.9 % (36.0-47.0); HEMOGLOBIN 11.9 g/dl (12.0-16.0); MEAN CORPUSCULAR HEMOGLOBIN 28.4 pg (27.0-33.0); MEAN CORPUSCULAR HGB CONC 32.2 g/dl (32.0-36.5); MEAN CORPUSCULAR VOLUME 88.1 fl (80.0-96.0); PLATELET COUNT, AUTOMATED 332 10^3/uL (150-450); RED BLOOD COUNT 4.19 10^6/uL (4.00-5.40); RED CELL DISTRIBUTION WIDTH 14.6 % (11.5-14.5); WHITE BLOOD COUNT 7.4 10^3/uL (4.0-10.0)
[2017-08-06 12:30] LABS: TOTAL 25(OH) VITAMIN D 33.7 NG/ML (30.0-100.0)
[2017-08-06 12:59] LABS: ALBUMIN 3.7 GM/DL (3.2-5.2); ALBUMIN/GLOBULIN RATIO 1.06 (1.00-1.93); ALKALINE PHOSPHATASE 96 U/L (45-117); ALT/SGPT 21 U/L (12-78); ANION GAP 8 MEQ/L (8-16); AST/SGOT 21 U/L (7-37); BILIRUBIN,TOTAL 0.5 MG/DL (0.2-1.0); BLOOD UREA NITROGEN 25 MG/DL (7-18); CALCIUM LEVEL 9.3 MG/DL (8.8-10.2); CARBON DIOXIDE LEVEL 29 MEQ/L (21-32); CHLORIDE LEVEL 103 MEQ/L (98-107); CHOLESTEROL LEVEL 231 MG/DL (<200); CHOLESTEROL RISK RATIO 2.924 (<5); CREATININE FOR GFR 0.93 MG/DL (0.55-1.02); GLOMERULAR FILTRATION RATE > 60.0 (>32); GLUCOSE, FASTING 104 MG/DL (83-110); HDL CHOLESTEROL 79 MG/DL (>40); LDL CHOLESTEROL 120.4 MG/DL (<100); MAGNESIUM LEVEL 2.5 MG/DL (1.8-2.4); NON-HDL-C 152 MG/DL; POTASSIUM SERUM 4.7 MEQ/L (3.5-5.1); SODIUM LEVEL 140 MEQ/L (136-145); TOTAL PROTEIN 7.2 GM/DL (6.4-8.2); TRIGLYCERIDES LEVEL 158 MG/DL (<150)
== END ==
LOC: M SFHCPLAZ 10:32
DX: G62.9 Polyneuropathy, unspecified (principal); I10 Essential (primary) hypertension; E78.00 Pure hypercholesterolemia, unspecified; E03.9 Hypothyroidism, unspecified; E55.9 Vitamin D deficiency, unspecified
CPT/HCPCS: 83735

== ENCOUNTER → 2017-12-08 | Outpatient (REF) | payer MEDICARE, BC ==
[2017-12-08 13:17] LABS: ALBUMIN 3.7 GM/DL (3.2-5.2); ALBUMIN/GLOBULIN RATIO 1.06 (1.00-1.93); ALKALINE PHOSPHATASE 94 U/L (45-117); ALT/SGPT 20 U/L (12-78); ANION GAP 7 MEQ/L (8-16); AST/SGOT 20 U/L (7-37); BILIRUBIN,TOTAL 0.5 MG/DL (0.2-1.0); BLOOD UREA NITROGEN 27 MG/DL (7-18); CALCIUM LEVEL 8.9 MG/DL (8.8-10.2); CARBON DIOXIDE LEVEL 29 MEQ/L (21-32); CHLORIDE LEVEL 105 MEQ/L (98-107); CHOLESTEROL LEVEL 227 MG/DL (<200); CHOLESTEROL RISK RATIO 3.026 (<5); CREATININE FOR GFR 0.97 MG/DL (0.55-1.30); GLOMERULAR FILTRATION RATE 58.4 (>32); GLUCOSE, FASTING 101 MG/DL (70-100); HDL CHOLESTEROL 75 MG/DL (>40); LDL CHOLESTEROL 116.4 MG/DL (<100); MAGNESIUM LEVEL 2.2 MG/DL (1.8-2.4); NON-HDL-C 152 MG/DL; POTASSIUM SERUM 4.9 MEQ/L (3.5-5.1); SODIUM LEVEL 141 MEQ/L (136-145); TOTAL PROTEIN 7.2 GM/DL (6.4-8.2); TRIGLYCERIDES LEVEL 178 MG/DL (<150)
== END ==
LOC: M SFHCPLAZ 09:37
DX: I10 Essential (primary) hypertension (principal); E78.00 Pure hypercholesterolemia, unspecified
CPT/HCPCS: 83735

== ENCOUNTER → 2017-12-27 | Outpatient (REF) | payer MEDICARE, BC | LOC: M SFHCLERA 14:50 | DX: J02.9 Acute pharyngitis, unspecified (principal) ==

== ENCOUNTER → 2018-05-25 | Outpatient (REF) | payer MEDICARE, BC ==
[2018-05-25 11:30] LABS: HEMATOCRIT 37.7 % (36.0-47.0); HEMOGLOBIN 11.9 g/dl (12.0-15.5); MEAN CORPUSCULAR HGB CONC 31.6 g/dl (32.0-36.5); PLATELET COUNT, AUTOMATED 306 10^3/uL (150-450); RED CELL DISTRIBUTION WIDTH 14.9 % (11.5-14.5); WHITE BLOOD COUNT 7.1 10^3/uL (4.0-10.0)
[2018-05-25 12:01] LABS: ALBUMIN 3.5 GM/DL (3.2-5.2); ALKALINE PHOSPHATASE 101 U/L (45-117); ALT/SGPT 20 U/L (12-78); ANION GAP 8 MEQ/L (8-16); AST/SGOT 17 U/L (7-37); BILIRUBIN,TOTAL 0.4 MG/DL (0.2-1.0); BLOOD UREA NITROGEN 31 MG/DL (7-18); CALCIUM LEVEL 8.7 MG/DL (8.8-10.2); CARBON DIOXIDE LEVEL 29 MEQ/L (21-32); CHLORIDE LEVEL 104 MEQ/L (98-107); CHOLESTEROL LEVEL 203 MG/DL (<200); GLOMERULAR FILTRATION RATE 50.4 (>32); GLUCOSE, FASTING 101 MG/DL (70-100); HDL CHOLESTEROL 70 MG/DL (>40); LDL CHOLESTEROL 97 MG/DL (<100); MAGNESIUM LEVEL 2.2 MG/DL (1.8-2.4); NON-HDL-C 133 MG/DL; POTASSIUM SERUM 4.5 MEQ/L (3.5-5.1); SODIUM LEVEL 141 MEQ/L (136-145); TRIGLYCERIDES LEVEL 179 MG/DL (<150)
== END ==
LOC: M SFHCPLAZ 08:13
DX: J30.9 Allergic rhinitis, unspecified (principal); Z85.3 Personal history of malignant neoplasm of breast; I10 Essential (primary) hypertension; E78.00 Pure hypercholesterolemia, unspecified; E03.9 Hypothyroidism, unspecified
CPT/HCPCS: 83735

== ENCOUNTER → 2018-09-23 | Outpatient (REF) | payer MEDICARE, BC ==
[~2018-09-23] MED LIST changes: -SALI0.6523; +SALI0.6528
[2018-09-23 13:02] LABS: ALBUMIN 3.8 GM/DL (3.2-5.2); BILIRUBIN,TOTAL 0.5 MG/DL (0.2-1.0); CALCIUM LEVEL 9.2 MG/DL (8.8-10.2); CHOLESTEROL RISK RATIO 3.069 (<5); CREATININE FOR GFR 1.08 MG/DL (0.55-1.30); GLOMERULAR FILTRATION RATE 51.5 (>32); POTASSIUM SERUM 4.7 MEQ/L (3.5-5.1); TOTAL PROTEIN 7.3 GM/DL (6.4-8.2)
[2018-09-23 13:07] LABS: TOTAL 25(OH) VITAMIN D 35.2 NG/ML (30.0-100.0)
== END ==
LOC: M SFHCPLAZ 08:42
PROVIDERS: ATTEND Internal Medicine
DX: I10 Essential (primary) hypertension (principal); E78.00 Pure hypercholesterolemia, unspecified; E55.9 Vitamin D deficiency, unspecified

== ENCOUNTER → 2019-03-30 | Outpatient (REF) | payer MEDICARE, BC ==
[~2019-03-30] MED LIST changes: +LISI10TA15 PO; -LISI10TA2 PO
[2019-03-30 10:16] LABS: HEMATOCRIT 36.2 % (36.0-47.0); HEMOGLOBIN 11.6 g/dl (12.0-15.5); MEAN CORPUSCULAR VOLUME 90.5 fl (80.0-96.0); PLATELET COUNT, AUTOMATED 300 10^3/uL (150-450); WHITE BLOOD COUNT 7.9 10^3/uL (4.0-10.0)
[2019-03-30 10:47] LABS: ALBUMIN 3.9 GM/DL (3.2-5.2); BILIRUBIN,TOTAL 0.5 MG/DL (0.2-1.0); CALCIUM LEVEL 9.5 MG/DL (8.8-10.2); CHOLESTEROL RISK RATIO 2.683 (<5); CREATININE FOR GFR 1.1 MG/DL (0.55-1.30); GLOMERULAR FILTRATION RATE 50.3 (>32); MAGNESIUM LEVEL 2.4 MG/DL (1.8-2.4); POTASSIUM SERUM 5.1 MEQ/L (3.5-5.1); THYROID STIMULATING HORMONE 3.39 uIU/ML (0.358-3.740); TOTAL PROTEIN 7.2 GM/DL (6.4-8.2)
== END ==
LOC: M SFHCPLAZ 08:26
PROVIDERS: ATTEND Internal Medicine
DX: Z85.3 Personal history of malignant neoplasm of breast (principal); I10 Essential (primary) hypertension; E78.00 Pure hypercholesterolemia, unspecified; E03.9 Hypothyroidism, unspecified

== ENCOUNTER → 2019-09-23 | Outpatient (CLI) | payer MEDICARE, BC ==
[2019-09-23 12:34] LABS: ALBUMIN 3.8 GM/DL (3.2-5.2); BILIRUBIN,TOTAL 0.3 MG/DL (0.2-1.0); CALCIUM LEVEL 9.1 MG/DL (8.8-10.2); CREATININE FOR GFR 1.1 MG/DL (0.55-1.30); GLOMERULAR FILTRATION RATE 50.3 (>32); POTASSIUM SERUM 4.8 MEQ/L (3.5-5.1); TOTAL PROTEIN 7.2 GM/DL (6.4-8.2)
== END ==
LOC: M PLALAB 09:24
PROVIDERS: ATTEND Internal Medicine
DX: I10 Essential (primary) hypertension (principal)

== ENCOUNTER → 2019-10-04 | Outpatient (CLI) | payer MEDICARE, BC ==
--- NOTE | 2019-10-04 13:50 | REP ---
THYROID ULTRASOUND: Real-time sonographic evaluation of the thyroid performed and compared to a prior study of 01/27/2017. There is not significant enlargement of either thyroid lobe with similar measurements compared to the prior study. Right lobe measures 2.7 x 1.5 x 1.2 cm and left lobe 3.4 x 1.3 x 1.3 cm. A nodule in the mid right lobe is unchanged 1.2 x 0.6 x 0.6 cm. There is a 7.0 mm nodule in the right lower pole which was not definitely seen on the prior study. A nodule in the left upper lobe is unchanged measuring 1.6 x 1.1 x 1.1 cm. IMPRESSION: A dominant nodule in each lobe. Both are unchanged. New 7.0 mm nodule right lower pole is of doubtful significance. Electronically Signed by Josh Nava MD 10/04/2019 05:55 P
== END ==
LOC: M RAD 11:53
PROVIDERS: ATTEND Internal Medicine
DX: E04.2 Nontoxic multinodular goiter (principal)

== ENCOUNTER → 2020-01-20 | Outpatient (REF) | payer MEDICARE, BC ==
[2020-01-20 19:01] LABS: APPEARANCE, URINE TURBID (CLEAR); BACTERIA, URINE AUTO 1+ (NEGATIVE); BILIRUBIN, URINE AUTO NEGATIVE (NEGATIVE); BLOOD, URINE BLOOD 1+ (NEGATIVE); COLOR, URINE AMBER (YELLOW); GLUCOSE, URINE (UA) AUTO NEGATIVE (NEGATIVE); KETONE, URINE AUTO NEGATIVE (NEGATIVE); LEUKOCYTE ESTERASE, URINE AUTO 3+ (NEGATIVE); NITRITE, URINE AUTO NEGATIVE (NEGATIVE); PROTEIN, URINE AUTO 1+ mg/dL (NEGATIVE); RBC, URINE AUTO 13 /HPF (0-3); SPECIFIC GRAVITY URINE AUTO 1.008 (1.002-1.035); SQUAMOUS EPITHELIAL CELL UR AU 2 /HPF (0-6); UROBILINOGEN, URINE AUTO 0.2 mg/dL (0.0-2.0); WBC, URINE AUTO TNTC /HPF (0-3)
== END ==
LOC: M SFHCPLAZ 16:36
PROVIDERS: ATTEND Internal Medicine
DX: R30.0 Dysuria (principal)

== ENCOUNTER → 2020-04-05 | Outpatient (CLI) | payer MEDICARE, BC ==
[2020-04-05 15:13] LABS: BASO # 0.1 10^3/uL (0.0-0.2); BASO % 0.6 % (0.0-1.0); EOS # 0.2 10^3/uL (0.0-0.5); EOS % 2.9 % (0.0-3.0); HEMATOCRIT 36.5 % (36.0-47.0); HEMOGLOBIN 11.1 g/dl (12.0-15.5); LYMPH # 1.8 10^3/uL (1.5-5.0); LYMPH % 22.9 % (24.0-44.0); MEAN CORPUSCULAR HEMOGLOBIN 27.3 pg (27.0-33.0); MEAN CORPUSCULAR HGB CONC 30.4 g/dl (32.0-36.5); MEAN CORPUSCULAR VOLUME 89.7 fl (80.0-96.0); MONO # 0.6 10^3/uL (0.0-0.8); MONO % 7.7 % (0.0-5.0); NEUTROPHILS # 5.2 10^3/uL (1.5-8.5); NEUTROPHILS % 65.6 % (36.0-66.0); PLATELET COUNT, AUTOMATED 392 10^3/uL (150-450); RED BLOOD COUNT 4.07 10^6/uL (4.00-5.40); WHITE BLOOD COUNT 7.9 10^3/uL (4.0-10.0)
[2020-04-05 15:23] LABS: ALBUMIN 3.9 GM/DL (3.2-5.2); BILIRUBIN,TOTAL 0.4 MG/DL (0.2-1.0); CALCIUM LEVEL 9.8 MG/DL (8.8-10.2); CHOLESTEROL RISK RATIO 2.857 (<5); CREATININE FOR GFR 0.99 MG/DL (0.55-1.30); GLOMERULAR FILTRATION RATE 56.6 (>32); MAGNESIUM LEVEL 2.3 MG/DL (1.8-2.4); POTASSIUM SERUM 5.1 MEQ/L (3.5-5.1); THYROID STIMULATING HORMONE 2.87 uIU/ML (0.358-3.740); TOTAL PROTEIN 7.4 GM/DL (6.4-8.2)
== END ==
LOC: M PLALAB 09:01
PROVIDERS: ATTEND Internal Medicine
DX: E04.1 Nontoxic single thyroid nodule (principal); E03.1 Congenital hypothyroidism without goiter; I10 Essential (primary) hypertension; M19.90 Unspecified osteoarthritis, unspecified site; Z85.3 Personal history of malignant neoplasm of breast

== ENCOUNTER → 2020-10-05 | Outpatient (REF) | payer MEDICARE, BC ==
[2020-10-05 13:45] LABS: BASO # 0.1 10^3/uL (0.0-0.2); EOS # 0.3 10^3/uL (0.0-0.5); EOS % 3.6 % (0.0-3.0); HEMATOCRIT 37.1 % (36.0-47.0); HEMOGLOBIN 11.5 g/dl (12.0-15.5); LYMPH # 1.7 10^3/uL (1.5-5.0); LYMPH % 21.4 % (24.0-44.0); MEAN CORPUSCULAR HEMOGLOBIN 27.8 pg (27.0-33.0); MEAN CORPUSCULAR VOLUME 89.8 fl (80.0-96.0); MONO # 0.7 10^3/uL (0.0-0.8); MONO % 8.3 % (2.0-8.0); NEUTROPHILS # 5.2 10^3/uL (1.5-8.5); NEUTROPHILS % 65.3 % (36.0-66.0); PLATELET COUNT, AUTOMATED 282 10^3/uL (150-450); RED BLOOD COUNT 4.13 10^6/uL (4.00-5.40)
[2020-10-05 15:08] LABS: ALBUMIN 3.9 GM/DL (3.2-5.2); BILIRUBIN,TOTAL 0.5 MG/DL (0.2-1.0); CALCIUM LEVEL 9.6 MG/DL (8.8-10.2); CHOLESTEROL RISK RATIO 3.108 (<5); CREATININE FOR GFR 1.15 MG/DL (0.55-1.30); GLOMERULAR FILTRATION RATE 47.6 (>32); MAGNESIUM LEVEL 2.1 MG/DL (1.8-2.4); POTASSIUM SERUM 4.8 MEQ/L (3.5-5.1); THYROID STIMULATING HORMONE 3.38 uIU/ML (0.358-3.740); TOTAL 25(OH) VITAMIN D 40.6 NG/ML (30.0-100.0); TOTAL PROTEIN 7.3 GM/DL (6.4-8.2)
== END ==
LOC: M PLALAB 10:04
PROVIDERS: ATTEND Internal Medicine
DX: Z85.3 Personal history of malignant neoplasm of breast (principal); I10 Essential (primary) hypertension; E78.00 Pure hypercholesterolemia, unspecified; E03.9 Hypothyroidism, unspecified; E55.9 Vitamin D deficiency, unspecified

== ENCOUNTER → 2020-12-29 | Outpatient (REF) | payer MEDICARE, BC ==
[2020-12-29 14:56] LABS: ALBUMIN 3.7 GM/DL (3.2-5.2); BILIRUBIN,TOTAL 0.4 MG/DL (0.2-1.0); CALCIUM LEVEL 9.8 MG/DL (8.8-10.2); CREATININE FOR GFR 1.01 MG/DL (0.55-1.30); GLOMERULAR FILTRATION RATE 55.3 (>32); POTASSIUM SERUM 4.7 MEQ/L (3.5-5.1); TOTAL PROTEIN 7.1 GM/DL (6.4-8.2)
== END ==
LOC: M PLALAB 09:42
PROVIDERS: ATTEND Internal Medicine
DX: I10 Essential (primary) hypertension (principal)

== ENCOUNTER → 2021-01-24 | Outpatient (CLI) | payer MEDICARE, BC ==
--- NOTE | 2021-01-24 10:34 | REP ---
INDICATION: R10.2 PELVIC PAIN. COMPARISON: None. TECHNIQUE: Transvesical examination of the urinary bladder FINDINGS: The pre void urinary bladder volume calculation is 287.6 cc and the postvoid calculation is 178.1 cc. This renders a 62% postvoid residual. No gross masses or mucosal irregularities were noted. Doppler at the UV junction shows uro jet phenomena bilaterally. IMPRESSION: As above <Electronically signed by Ajay Pollack > 01/24/21 [id number]
== END ==
LOC: M WHC 09:27
PROVIDERS: ATTEND Internal Medicine
DX: R10.2 Pelvic and perineal pain (principal)

== ENCOUNTER → 2021-02-13 | Outpatient (CLI) | payer MEDICARE, BC ==
[~2021-02-13] MED LIST changes: -LISI10TA15 PO; +LISI10TA24 PO
== END ==
LOC: M RAD 12:55
PROVIDERS: ATTEND Internal Medicine
DX: R10.2 Pelvic and perineal pain (principal)

== ENCOUNTER 2021-05-02 15:25 | Emergency (ER) | payer MEDICARE, BC ==
[~2021-05-02] VITALS: Ht 157.5 cm; Wt 63.6 kg
[~2021-05-02 15:25] MED LIST changes: +LISI10TA15 PO; -LISI10TA24 PO
[2021-05-02 20:02] VITALS: BP 145/72
== END 2021-05-02 21:05 | disposition left against medical advice (07) ==
LOC: M ED 15:25
DX: I10 Essential (primary) hypertension (principal); H11.31 Conjunctival hemorrhage, right eye; Z53.9 Procedure and treatment not carried out, unspecified reason; E78.5 Hyperlipidemia, unspecified; K21.9 Gastro-esophageal reflux disease without esophagitis; Z85.3 Personal history of malignant neoplasm of breast; Z87.19 Personal history of other diseases of the digestive system; Z87.440 Personal history of urinary (tract) infections; Z87.891 Personal history of nicotine dependence; Z79.899 Other long term (current) drug therapy

== ENCOUNTER → 2021-05-04 | Outpatient (CLI) | payer MEDICARE, BC ==
[2021-05-04 18:11] LABS: CALCIUM LEVEL 9.3 MG/DL (8.8-10.2); CREATININE FOR GFR 1.16 MG/DL (0.55-1.30); POTASSIUM SERUM 4.4 MEQ/L (3.5-5.1); THYROID STIMULATING HORMONE 2.7 uIU/ML (0.358-3.740)
== END ==
LOC: M PLALAB 15:05
PROVIDERS: ATTEND Family Medicine
DX: I10 Essential (primary) hypertension (principal)

== ENCOUNTER → 2021-06-04 | Outpatient (CLI) | payer MEDICARE, BC ==
[2021-06-04 16:47] LABS: ALBUMIN 3.6 GM/DL (3.2-5.2); BILIRUBIN,TOTAL 0.4 MG/DL (0.2-1.0); CALCIUM LEVEL 9.6 MG/DL (8.8-10.2); CHOLESTEROL RISK RATIO 3.682 (<5); CREATININE FOR GFR 1.12 MG/DL (0.55-1.30); MAGNESIUM LEVEL 2.3 MG/DL (1.8-2.4); POTASSIUM SERUM 4.9 MEQ/L (3.5-5.1); TOTAL PROTEIN 7.2 GM/DL (6.4-8.2)
== END ==
LOC: M PLALAB 09:30
PROVIDERS: ATTEND Internal Medicine
DX: I10 Essential (primary) hypertension (principal); E78.00 Pure hypercholesterolemia, unspecified

== ENCOUNTER → 2021-12-25 | Outpatient (REF) | payer MEDICARE, BC ==
[~2021-12-25] MED LIST changes: -LISI10TA15 PO; +LISI10TA24 PO
== END ==
LOC: M SFHCPLAZ 09:13
PROVIDERS: ATTEND Internal Medicine
DX: E78.00 Pure hypercholesterolemia, unspecified (principal); I10 Essential (primary) hypertension; J30.9 Allergic rhinitis, unspecified

== ENCOUNTER → 2021-12-25 | Outpatient (CLI) | payer MEDICARE, BC ==
[2021-12-25 12:57] LABS: BASO # 0.1 10^3/uL (0.0-0.2); BASO % 0.7 % (0.0-1.0); EOS # 0.3 10^3/uL (0.0-0.5); EOS % 3.8 % (0.0-3.0); HEMATOCRIT 34.7 % (36.0-47.0); HEMOGLOBIN 11.1 g/dl (12.0-15.5); LYMPH # 1.2 10^3/uL (1.5-5.0); LYMPH % 17.5 % (24.0-44.0); MEAN CORPUSCULAR HEMOGLOBIN 28.5 pg (27.0-33.0); MEAN CORPUSCULAR VOLUME 89.2 fl (80.0-96.0); MONO # 0.7 10^3/uL (0.0-0.8); MONO % 9.6 % (2.0-8.0); NEUTROPHILS # 4.7 10^3/uL (1.5-8.5); NEUTROPHILS % 68.1 % (36.0-66.0); PLATELET COUNT, AUTOMATED 255 10^3/uL (150-450); RED BLOOD COUNT 3.89 10^6/uL (4.00-5.40); WHITE BLOOD COUNT 6.9 10^3/uL (4.0-10.0)
[2021-12-25 13:03] LABS: ALBUMIN 3.7 GM/DL (3.2-5.2); BILIRUBIN,TOTAL 0.6 MG/DL (0.2-1.0); CALCIUM LEVEL 9.2 MG/DL (8.8-10.2); CHOLESTEROL RISK RATIO 2.968 (<5); CREATININE FOR GFR 1.17 MG/DL (0.55-1.30); GLOMERULAR FILTRATION RATE 46.6 (>32); MAGNESIUM LEVEL 2.2 MG/DL (1.8-2.4); TOTAL PROTEIN 7.1 GM/DL (6.4-8.2)
[2021-12-25 17:42] LABS: THYROID STIMULATING HORMONE 3.71 uIU/ML (0.358-3.740)
[2021-12-25 17:44] LABS: FOLATE 22.1 NG/ML
== END ==
LOC: M PLALAB 09:17
PROVIDERS: ATTEND Internal Medicine
DX: G62.9 Polyneuropathy, unspecified (principal); E03.9 Hypothyroidism, unspecified; I10 Essential (primary) hypertension; E78.00 Pure hypercholesterolemia, unspecified; J30.9 Allergic rhinitis, unspecified

== ENCOUNTER → 2022-06-03 | Outpatient (CLI) | payer MEDICARE, BC ==
[2022-06-03 14:35] LABS: BASO # 0.1 10^3/uL (0.0-0.2); BASO % 0.8 % (0.0-1.0); EOS # 0.3 10^3/uL (0.0-0.5); EOS % 4.4 % (0.0-3.0); HEMATOCRIT 34.2 % (36.0-47.0); HEMOGLOBIN 10.8 g/dl (12.0-15.5); LYMPH % 14.4 % (24.0-44.0); MEAN CORPUSCULAR HEMOGLOBIN 28.9 pg (27.0-33.0); MEAN CORPUSCULAR HGB CONC 31.6 g/dl (32.0-36.5); MEAN CORPUSCULAR VOLUME 91.4 fl (80.0-96.0); MONO # 0.6 10^3/uL (0.0-0.8); MONO % 8.2 % (2.0-8.0); NEUTROPHILS # 5.1 10^3/uL (1.5-8.5); NEUTROPHILS % 71.9 % (36.0-66.0); PLATELET COUNT, AUTOMATED 275 10^3/uL (150-450); RED BLOOD COUNT 3.74 10^6/uL (4.00-5.40); WHITE BLOOD COUNT 7.1 10^3/uL (4.0-10.0)
[2022-06-03 14:48] LABS: HEMOGLOBIN A1c 5.8 %
[2022-06-03 15:44] LABS: CHOLESTEROL RISK RATIO 2.923 (<5); PERCENT SATURATION 16.2 % (13.2-45.0); THYROID STIMULATING HORMONE 3.73 uIU/ML (0.358-3.740)
== END ==
LOC: M PLALAB 09:26
PROVIDERS: ATTEND Internal Medicine Hematology
DX: E03.9 Hypothyroidism, unspecified (principal); E78.00 Pure hypercholesterolemia, unspecified; D64.9 Anemia, unspecified

== ENCOUNTER → 2022-06-19 | Outpatient (CLI) | payer MEDICARE, BC | LOC: M RAD 09:50 | PROVIDERS: ATTEND Internal Medicine Hematology | DX: E04.1 Nontoxic single thyroid nodule (principal); G62.9 Polyneuropathy, unspecified ==

== ENCOUNTER → 2022-08-28 | Outpatient (CLI) | payer MEDICARE, BC ==
[2022-08-28 11:02] LABS: HEMATOCRIT 34.5 % (36.0-47.0); HEMOGLOBIN 10.7 g/dl (12.0-15.5); MEAN CORPUSCULAR HEMOGLOBIN 28.2 pg (27.0-33.0); PLATELET COUNT, AUTOMATED 239 10^3/uL (150-450); RED BLOOD COUNT 3.79 10^6/uL (4.00-5.40); WHITE BLOOD COUNT 6.8 10^3/uL (4.0-10.0)
[2022-08-28 11:33] LABS: ALBUMIN 3.7 G/DL (3.2-5.2); BILIRUBIN,TOTAL 0.6 MG/DL (0.3-1.2); CALCIUM LEVEL 9.4 MG/DL (8.3-10.6); CHOLESTEROL RISK RATIO 4.04 (<5); CREATININE FOR GFR 1.06 MG/DL (0.55-1.30); GLOMERULAR FILTRATION RATE 52.1 (>32); HDL CHOLESTEROL 59.3 MG/DL (>40); LDL CHOLESTEROL 151.5 MG/DL (<100); POTASSIUM SERUM 4.9 MMOL/L (3.5-5.1); TOTAL PROTEIN 6.7 G/DL (5.7-8.2)
[2022-08-28 11:34] LABS: C REACTIVE PROTEIN QUANTITATIV 2.7 MG/DL (<1.0)
[2022-08-28 11:36] LABS: TOTAL 25(OH) VITAMIN D 37.9 NG/ML (20.0-100.0)
== END ==
LOC: M PLALAB 08:53
PROVIDERS: ATTEND Internal Medicine Hematology
DX: E78.00 Pure hypercholesterolemia, unspecified (principal); Z79.899 Other long term (current) drug therapy

== ENCOUNTER 2022-10-06 19:11 | Inpatient (IN) | payer MEDICARE, BC ==
[~2022-10-06] VITALS: Ht 157.5 cm; Wt 59.3 kg
[2022-10-06] MEDS ORDERED: BOOSTRIX/ADACEL VACCINE (DIPHTH/PERTUSS/ACELL/TETANUS) 0.5ML SYR IM.IMMUN ONE (20:20)
[2022-10-06 20:24] LABS: BASO % 0.2 % (0.0-1.0); EOS % 0.1 % (0.0-3.0); HEMATOCRIT 39.3 % (36.0-47.0); HEMOGLOBIN 12.7 g/dl (12.0-15.5); LYMPH # 0.8 10^3/uL (1.5-5.0); LYMPH % 5.2 % (24.0-44.0); MEAN CORPUSCULAR HEMOGLOBIN 28.7 pg (27.0-33.0); MEAN CORPUSCULAR HGB CONC 32.3 g/dl (32.0-36.5); MEAN CORPUSCULAR VOLUME 88.7 fl (80.0-96.0); MONO % 6.4 % (2.0-8.0); NEUTROPHILS # 13.9 10^3/uL (1.5-8.5); NEUTROPHILS % 87.5 % (36.0-66.0); PLATELET COUNT, AUTOMATED 272 10^3/uL (150-450); RED BLOOD COUNT 4.43 10^6/uL (4.00-5.40); WHITE BLOOD COUNT 15.8 10^3/uL (4.0-10.0)
[2022-10-06 20:45] LABS: CK-MB VALUE MASS 13.7 NG/ML (<3.6)
[2022-10-06 20:46] LABS: ALBUMIN 3.9 G/DL (3.2-5.2); ALKALINE PHOSPHATASE 95 U/L (46-116); ALT/SGPT 29 U/L (7.0-40); AST/SGOT 60 U/L (<34); BILIRUBIN,DIRECT 0.3 MG/DL (<0.4); BILIRUBIN,TOTAL 1.1 MG/DL (0.3-1.2); BLOOD UREA NITROGEN 28 MG/DL (9-23); CALCIUM LEVEL 9.4 MG/DL (8.3-10.6); CARBON DIOXIDE LEVEL 26 MMOL/L (20-31); CHLORIDE LEVEL 101 MMOL/L (98-107); CREATININE FOR GFR 0.83 MG/DL (0.55-1.30); GLOMERULAR FILTRATION RATE > 60.0 (>32); GLUCOSE, FASTING 130 MG/DL (74-106); POTASSIUM SERUM 4.4 MMOL/L (3.5-5.1); SODIUM LEVEL 139 MMOL/L (136-145); TOTAL PROTEIN 7.4 G/DL (5.7-8.2)
[2022-10-06 20:52] LABS: CPK CREATINE PHOSPHOKINASE 1276 U/L (34-145); MB/CK RELATIVE INDEX 1.07 (< OR =4)
[2022-10-06 20:56] LABS: RSV AMPLIFICATION NEGATIVE (NEGATIVE)
[2022-10-06] MEDS ORDERED: NS 1,000 ML IV SCH (21:20)
[2022-10-06] MEDS ORDERED: CARV25TA PO (21:43)
[2022-10-06] MEDS ORDERED: LOSA100T8 PO (21:43)
[2022-10-06] MEDS ORDERED: ACET650T61 PO (21:43)
[2022-10-06] MEDS ORDERED: CO Q1CAP2 PO (21:43)
[2022-10-06] MEDS ORDERED: THERTAB52 PO (21:43)
[2022-10-06] MEDS ORDERED: HOME MED LIST COMPLETE! XX SCH (21:45)
[2022-10-06] MEDS: NS 1,000 ML IV SCH (22:55)
[2022-10-06] MEDS ORDERED: ACETAMINOPHEN TAB 650MG DOSE (2X325MG) PO PRN (22:55)
[2022-10-06] MEDS ORDERED: HYDROMORPHONE HCL 0.5 MG/ 0.5 ML SYRINGE IV PRN (23:35)
[2022-10-07 00:30] LABS: CK-MB VALUE MASS 8.9 NG/ML (<3.6); MB/CK RELATIVE INDEX 0.86 (< OR =4)
[2022-10-07 01:50] VITALS: BP 163/82
[2022-10-07 05:05] VITALS: BP 160/81
[2022-10-07] MEDS: cefTRIAXone SOD 1 GM in D5W MINI-BAG PLUS 50 ML IV SCH (05:15)
[2022-10-07] MEDS: LEVOTHYROXINE 75MCG TABLET (0.075MG) PO SCH (05:54)
[2022-10-07 06:09] LABS: HEMATOCRIT 34.4 % (36.0-47.0); MEAN CORPUSCULAR HEMOGLOBIN 28.9 pg (27.0-33.0); MEAN CORPUSCULAR VOLUME 90.3 fl (80.0-96.0); PLATELET COUNT, AUTOMATED 242 10^3/uL (150-450); RED BLOOD COUNT 3.81 10^6/uL (4.00-5.40); WHITE BLOOD COUNT 14.5 10^3/uL (4.0-10.0)
[2022-10-07 06:35] LABS: BLOOD UREA NITROGEN 26 MG/DL (9-23); CALCIUM LEVEL 8.2 MG/DL (8.3-10.6); CARBON DIOXIDE LEVEL 26 MMOL/L (20-31); CHLORIDE LEVEL 103 MMOL/L (98-107); CREATININE FOR GFR 0.86 MG/DL (0.55-1.30); GLOMERULAR FILTRATION RATE > 60.0 (>32); GLUCOSE, FASTING 152 MG/DL (74-106); MAGNESIUM LEVEL 1.7 MG/DL (1.8-2.4); POTASSIUM SERUM 3.9 MMOL/L (3.5-5.1); SODIUM LEVEL 140 MMOL/L (136-145)
[2022-10-07 06:44] LABS: CPK CREATINE PHOSPHOKINASE 1287 U/L (34-145)
[2022-10-07] MEDS: CARVedilol 12.5 MG TAB PO SCH ×2 (09:59→21:34)
[2022-10-07] MEDS: ACETAMINOPHEN 650MG ER TAB (TYLENOL ARTHRITIS) PO SCH ×2 (10:00→21:32)
[2022-10-07] MEDS: MULTIVITAMINS/MINERALS THERAP 1 TAB PO SCH (10:00)
[2022-10-07 11:55] VITALS: BP_SYST 132; BP_SYST 134; BP_DIAS 65; BP_DIAS 66; BP_DIAS 67
[2022-10-07] MEDS: NS 1,000 ML IV SCH (13:44)
[2022-10-07] MEDS: HEPARIN SOD (PORCINE) 5000UNITS/ML 1ML VIAL/SYRINGE SQ SCH ×2 (13:44→21:35)
[2022-10-07 15:00] VITALS: BP 128/64
[2022-10-07] MEDS: MAGNESIUM OXIDE 400MG TAB (MAG-OX) PO SCH ×2 (16:05→21:34)
[2022-10-07] MEDS: ATORVASTATIN 10 MG TAB PO SCH (21:32)
[2022-10-07 22:00] VITALS: BP 167/90
[2022-10-08] MEDS: NS 1,000 ML IV SCH ×2 (02:16→15:15)
[2022-10-08 04:53] VITALS: BP 155/76
[2022-10-08] MEDS: cefTRIAXone SOD 1 GM in D5W MINI-BAG PLUS 50 ML IV SCH (05:31)
[2022-10-08] MEDS: LEVOTHYROXINE 75MCG TABLET (0.075MG) PO SCH (05:31)
[2022-10-08] MEDS: HEPARIN SOD (PORCINE) 5000UNITS/ML 1ML VIAL/SYRINGE SQ SCH ×3 (05:32→21:31)
[2022-10-08 06:13] LABS: BASO # 0.1 10^3/uL (0.0-0.2); BASO % 0.6 % (0.0-1.0); EOS # 0.3 10^3/uL (0.0-0.5); EOS % 2.9 % (0.0-3.0); LYMPH # 0.9 10^3/uL (1.5-5.0); LYMPH % 8.8 % (24.0-44.0); MEAN CORPUSCULAR HEMOGLOBIN 29.2 pg (27.0-33.0); MEAN CORPUSCULAR HGB CONC 32.3 g/dl (32.0-36.5); MEAN CORPUSCULAR VOLUME 90.4 fl (80.0-96.0); MONO # 0.7 10^3/uL (0.0-0.8); NEUTROPHILS # 8.3 10^3/uL (1.5-8.5); NEUTROPHILS % 80.3 % (36.0-66.0); PLATELET COUNT, AUTOMATED 217 10^3/uL (150-450); RED BLOOD COUNT 3.43 10^6/uL (4.00-5.40); WHITE BLOOD COUNT 10.4 10^3/uL (4.0-10.0)
[2022-10-08 06:28] LABS: BLOOD UREA NITROGEN 24 MG/DL (9-23); CALCIUM LEVEL 7.8 MG/DL (8.3-10.6); CARBON DIOXIDE LEVEL 26 MMOL/L (20-31); CHLORIDE LEVEL 103 MMOL/L (98-107); GLOMERULAR FILTRATION RATE > 60.0 (>32); GLUCOSE, FASTING 154 MG/DL (74-106); POTASSIUM SERUM 3.8 MMOL/L (3.5-5.1); SODIUM LEVEL 138 MMOL/L (136-145)
[2022-10-08 06:38] LABS: CPK CREATINE PHOSPHOKINASE 688 U/L (34-145)
[2022-10-08] MEDS ORDERED: CALCIUM GLUCONATE 1,000 MG in D5W MINI-BAG PLUS 100 ML IV ONE (08:00)
[2022-10-08] MEDS: MULTIVITAMINS/MINERALS THERAP 1 TAB PO SCH (10:35)
[2022-10-08] MEDS: CARVedilol 12.5 MG TAB PO SCH ×2 (10:38→21:30)
[2022-10-08] MEDS: ACETAMINOPHEN 650MG ER TAB (TYLENOL ARTHRITIS) PO SCH ×2 (10:38→21:30)
[2022-10-08] MEDS: MAGNESIUM OXIDE 400MG TAB (MAG-OX) PO SCH ×3 (10:38→21:29)
[2022-10-08 14:00] VITALS: BP 115/53
[2022-10-08] MEDS ORDERED: traMADol 50 MG TAB PO PRN (19:50)
[2022-10-08] MEDS ORDERED: PERCOCET 5MG/325MG TAB PO PRN (19:50)
[2022-10-08] MEDS: ATORVASTATIN 10 MG TAB PO SCH (21:29)
[2022-10-08 21:38] VITALS: BP 148/75
[2022-10-09] MEDS: NS 1,000 ML IV SCH (03:16)
[2022-10-09] MEDS: LEVOTHYROXINE 75MCG TABLET (0.075MG) PO SCH (05:27)
[2022-10-09] MEDS: HEPARIN SOD (PORCINE) 5000UNITS/ML 1ML VIAL/SYRINGE SQ SCH ×2 (05:28→14:09)
[2022-10-09] MEDS: cefTRIAXone SOD 1 GM in D5W MINI-BAG PLUS 50 ML IV SCH (05:28)
[2022-10-09 06:29] LABS: BASO % 0.4 % (0.0-1.0); EOS # 0.4 10^3/uL (0.0-0.5); EOS % 4.7 % (0.0-3.0); HEMATOCRIT 30.3 % (36.0-47.0); HEMOGLOBIN 9.6 g/dl (12.0-15.5); LYMPH # 0.8 10^3/uL (1.5-5.0); LYMPH % 9.1 % (24.0-44.0); MEAN CORPUSCULAR HEMOGLOBIN 28.7 pg (27.0-33.0); MEAN CORPUSCULAR HGB CONC 31.7 g/dl (32.0-36.5); MEAN CORPUSCULAR VOLUME 90.7 fl (80.0-96.0); MONO # 0.7 10^3/uL (0.0-0.8); MONO % 7.1 % (2.0-8.0); NEUTROPHILS # 7.2 10^3/uL (1.5-8.5); NEUTROPHILS % 78.3 % (36.0-66.0); PLATELET COUNT, AUTOMATED 212 10^3/uL (150-450); RED BLOOD COUNT 3.34 10^6/uL (4.00-5.40); WHITE BLOOD COUNT 9.2 10^3/uL (4.0-10.0)
[2022-10-09 06:59] LABS: CPK CREATINE PHOSPHOKINASE 269 U/L (34-145)
[2022-10-09 07:00] LABS: BLOOD UREA NITROGEN 16 MG/DL (9-23); CALCIUM LEVEL 7.8 MG/DL (8.3-10.6); CARBON DIOXIDE LEVEL 25 MMOL/L (20-31); CHLORIDE LEVEL 102 MMOL/L (98-107); CREATININE FOR GFR 0.73 MG/DL (0.55-1.30); GLOMERULAR FILTRATION RATE > 60.0 (>32); GLUCOSE, FASTING 111 MG/DL (74-106); MAGNESIUM LEVEL 1.9 MG/DL (1.8-2.4); POTASSIUM SERUM 4.1 MMOL/L (3.5-5.1); SODIUM LEVEL 136 MMOL/L (136-145)
[2022-10-09] MEDS: MAGNESIUM OXIDE 400MG TAB (MAG-OX) PO SCH ×3 (09:00→14:09)
[2022-10-09 09:10] VITALS: BP 148/75
[2022-10-09] MEDS: CARVedilol 12.5 MG TAB PO SCH (09:10)
[2022-10-09] MEDS: ACETAMINOPHEN 650MG ER TAB (TYLENOL ARTHRITIS) PO SCH (09:10)
[2022-10-09] MEDS: MULTIVITAMINS/MINERALS THERAP 1 TAB PO SCH (09:11)
[2022-10-09] MEDS ORDERED: PILL CUTTER 1 EACH XX PRN (13:50)
[2022-10-09 14:00] VITALS: BP 132/63
[2022-10-09] MEDS ORDERED: TRAM50TA2 PO (14:31)
[2022-10-09] MEDS ORDERED: CEFU50TA PO (14:31)
[2022-10-09] MEDS ORDERED: MAGN400T2 PO (14:31)
[2022-10-09] MEDS ORDERED: PROB250C PO (14:37)
[2022-10-09] MEDS ORDERED: CEFUROXIME 500 MG TAB PO SCH (21:00)
== END 2022-10-09 16:24 | DRG 557 ==
LOC: EDBD 19:11 → M ED 19:11 → M ED INP 22:53 → M MSPAV 10-07 01:48
PROVIDERS: ADMIT Internal Medicine; ATTEND Internal Medicine
DX: M62.82 Rhabdomyolysis (principal); G93.41 Metabolic encephalopathy; N39.0 Urinary tract infection, site not specified; R44.3 Hallucinations, unspecified; S09.90XA Unspecified injury of head, initial encounter; H49.22 Sixth [abducent] nerve palsy, left eye; S01.01XA Laceration without foreign body of scalp, initial encounter; I10 Essential (primary) hypertension; E03.9 Hypothyroidism, unspecified; K21.9 Gastro-esophageal reflux disease without esophagitis; E78.5 Hyperlipidemia, unspecified; R32 Unspecified urinary incontinence; H26.9 Unspecified cataract; E86.0 Dehydration; K57.90 Diverticulosis of intestine, part unspecified, without perforation or abscess without bleeding; W19.XXXA Unspecified fall, initial encounter; M19.90 Unspecified osteoarthritis, unspecified site; D64.9 Anemia, unspecified; M81.0 Age-related osteoporosis without current pathological fracture; E83.42 Hypomagnesemia; Y92.009 Unspecified place in unspecified non-institutional (private) residence as the place of occurrence of the external cause

== ENCOUNTER 2022-10-09 15:22 | Inpatient (IN) | payer MEDICARE, BC ==
[~2022-10-09] VITALS: Ht 157.5 cm; Wt 68.5 kg
[~2022-10-09 15:22] MED LIST changes: +ACET650T61 PO; +CARV25TA PO; +CEFU50TA PO; +CO Q1CAP2 PO; +LOSA100T8 PO; +MAGN400T2 PO; +PROB250C PO; +THERTAB52 PO; +TRAM50TA2 PO
[2022-10-09] MEDS ORDERED: traMADol 50 MG TAB PO PRN (15:30)
[2022-10-09] MEDS ORDERED: BISACODYL 10MG SUPP PR PRN (15:30)
[2022-10-09 16:34] VITALS: BP 142/80
[2022-10-09] MEDS ORDERED: PILL CUTTER 1 EACH XX PRN (17:15)
[2022-10-09] MEDS: CEFUROXIME 500 MG TAB PO SCH (18:34)
[2022-10-09 20:00] VITALS: BP 160/66
[2022-10-09] MEDS: DOCUSATE SODIUM 100MG CAPSULE PO SCH (20:52)
[2022-10-09] MEDS: ATORVASTATIN 10 MG TAB PO SCH (20:54)
[2022-10-09] MEDS: MAGNESIUM OXIDE 400MG TAB (MAG-OX) PO SCH (20:54)
[2022-10-09] MEDS: ACETAMINOPHEN 650MG ER TAB (TYLENOL ARTHRITIS) PO SCH (20:54)
[2022-10-09] MEDS: HEPARIN SOD (PORCINE) 5000UNITS/ML 1ML VIAL/SYRINGE SC SCH (20:55)
[2022-10-09] MEDS: REMEDY PHYTOPLEX Z-GUARD PASTE 113GM TUBE (FROM STOREROOM PRODUCT) TOP SCH (20:55)
[2022-10-09] MEDS: CARVedilol 12.5 MG TAB PO SCH (20:55)
[2022-10-09] MEDS ORDERED: SENNA 8.6 MG TAB (SENOKOT) PO SCH (21:00)
[2022-10-10 05:20] VITALS: BP 158/68
[2022-10-10] MEDS: LEVOTHYROXINE 75MCG TABLET (0.075MG) PO SCH (05:38)
[2022-10-10 06:13] LABS: BASO % 0.5 % (0.0-1.0); EOS # 0.4 10^3/uL (0.0-0.5); EOS % 4.9 % (0.0-3.0); HEMATOCRIT 28.8 % (36.0-47.0); LYMPH # 0.8 10^3/uL (1.5-5.0); LYMPH % 9.9 % (24.0-44.0); MEAN CORPUSCULAR HEMOGLOBIN 28.4 pg (27.0-33.0); MEAN CORPUSCULAR HGB CONC 31.3 g/dl (32.0-36.5); MEAN CORPUSCULAR VOLUME 90.9 fl (80.0-96.0); MONO # 0.6 10^3/uL (0.0-0.8); MONO % 7.7 % (2.0-8.0); NEUTROPHILS # 6.3 10^3/uL (1.5-8.5); NEUTROPHILS % 76.5 % (36.0-66.0); PLATELET COUNT, AUTOMATED 200 10^3/uL (150-450); RED BLOOD COUNT 3.17 10^6/uL (4.00-5.40); WHITE BLOOD COUNT 8.2 10^3/uL (4.0-10.0)
[2022-10-10 06:55] LABS: ALBUMIN 2.6 G/DL (3.2-5.2); ALKALINE PHOSPHATASE 69 U/L (46-116); ALT/SGPT 35 U/L (7.0-40); AST/SGOT 64 U/L (<34); BILIRUBIN,TOTAL 0.6 MG/DL (0.3-1.2); BLOOD UREA NITROGEN 16 MG/DL (9-23); CALCIUM LEVEL 8.1 MG/DL (8.3-10.6); CARBON DIOXIDE LEVEL 24 MMOL/L (20-31); CHLORIDE LEVEL 103 MMOL/L (98-107); CREATININE FOR GFR 0.78 MG/DL (0.55-1.30); GLOMERULAR FILTRATION RATE > 60.0 (>32); GLUCOSE, FASTING 98 MG/DL (74-106); POTASSIUM SERUM 5.2 MMOL/L (3.5-5.1); SODIUM LEVEL 136 MMOL/L (136-145); TOTAL PROTEIN 5.6 G/DL (5.7-8.2)
[2022-10-10] MEDS: REMEDY PHYTOPLEX Z-GUARD PASTE 113GM TUBE (FROM STOREROOM PRODUCT) TOP SCH ×3 (09:00→20:10)
[2022-10-10] MEDS ORDERED: LOSARTAN 25 MG TAB PO SCH (09:00)
[2022-10-10] MEDS: MAGNESIUM OXIDE 400MG TAB (MAG-OX) PO SCH (09:00)
[2022-10-10] MEDS ORDERED: traMADol 50 MG TAB PO PRN ×2 (09:25→17:00)
[2022-10-10] MEDS: hydroCHLOROthiazide 12.5 MG CAPSULE PO SCH (09:49)
[2022-10-10] MEDS: ACETAMINOPHEN 650MG ER TAB (TYLENOL ARTHRITIS) PO SCH ×2 (09:49→20:08)
[2022-10-10] MEDS: MULTIVITAMINS/MINERALS THERAP 1 TAB PO SCH (09:49)
[2022-10-10] MEDS: CARVedilol 12.5 MG TAB PO SCH ×2 (09:49→20:08)
[2022-10-10] MEDS: DOCUSATE SODIUM 100MG CAPSULE PO SCH (09:49)
[2022-10-10] MEDS: PANTOPRAZOLE 40MG TAB (PROTONIX) PO SCH (09:49)
[2022-10-10] MEDS: HEPARIN SOD (PORCINE) 5000UNITS/ML 1ML VIAL/SYRINGE SC SCH ×2 (09:50→20:09)
[2022-10-10] MEDS: CEFUROXIME 500 MG TAB PO SCH (09:53)
[2022-10-10] MEDS: traMADol 50 MG TAB PO SCH ×2 (09:54→12:12)
[2022-10-10 11:47] LABS: IRON (FE) 9 UG/DL (50-170); TOTAL IRON BINDING CAPACITY 223 UG/DL (250-425)
[2022-10-10 11:49] LABS: FERRITIN 263.4 NG/ML (7.3-270.7)
[2022-10-10] MEDS ORDERED: **hydrALAZINE HCL** 25 MG TAB PO SCH (12:00)
[2022-10-10] MEDS ORDERED: PATIROMER SORBITEX CALCIUM 8.4 GM POWDER PACKET (VELTASSA) PO ONE (12:00)
[2022-10-10] MEDS: LACTOBACILLUS ACIDOPHILUS CAP (BACID) PO SCH ×2 (12:05→17:37)
[2022-10-10] MEDS: amLODIPine 5 MG TAB PO SCH (12:11)
[2022-10-10 13:52] LABS: MAGNESIUM LEVEL 1.9 MG/DL (1.8-2.4)
[2022-10-10 14:00] VITALS: BP 133/60
[2022-10-10] MEDS: CARBAMIDE PEROXIDE 6.5% OTIC SOLN 15ML AD SCH ×2 (15:00→20:10)
[2022-10-10] MEDS ORDERED: LevoFLOXacin 500 MG TABLET PO ONE (15:00)
[2022-10-10] MEDS: FLUTICASONE PROP 0.05% NASAL SPRAY 16 GM (FLONASE) NARES SCH ×2 (15:00→20:12)
[2022-10-10] MEDS: SODIUM CHLORIDE NASAL 0.65% SPRAY BTL (OCEAN) SCH ×2 (16:00→20:13)
[2022-10-10] MEDS: TAMSULOSIN 0.4 MG CAP PO SCH (17:37)
[2022-10-10] MEDS: LORATADINE 10 MG TAB PO SCH (17:38)
[2022-10-10 20:00] VITALS: BP 143/65
[2022-10-10] MEDS: ATORVASTATIN 10 MG TAB PO SCH (20:08)
[2022-10-10] MEDS: RAMELTEON 8 MG TAB (ROZEREM) PO SCH (22:24)
[2022-10-11 06:00] VITALS: BP 163/74
[2022-10-11] MEDS: LEVOTHYROXINE 75MCG TABLET (0.075MG) PO SCH (06:12)
[2022-10-11 08:10] LABS: BASO # 0.1 10^3/uL (0.0-0.2); BASO % 0.6 % (0.0-1.0); EOS # 0.4 10^3/uL (0.0-0.5); EOS % 4.5 % (0.0-3.0); HEMATOCRIT 29.2 % (36.0-47.0); HEMOGLOBIN 9.4 g/dl (12.0-15.5); LYMPH # 0.7 10^3/uL (1.5-5.0); LYMPH % 7.8 % (24.0-44.0); MEAN CORPUSCULAR HEMOGLOBIN 28.7 pg (27.0-33.0); MEAN CORPUSCULAR HGB CONC 32.2 g/dl (32.0-36.5); MONO # 0.7 10^3/uL (0.0-0.8); MONO % 8.2 % (2.0-8.0); NEUTROPHILS # 6.8 10^3/uL (1.5-8.5); NEUTROPHILS % 78.4 % (36.0-66.0); PLATELET COUNT, AUTOMATED 215 10^3/uL (150-450); RED BLOOD COUNT 3.28 10^6/uL (4.00-5.40); WHITE BLOOD COUNT 8.7 10^3/uL (4.0-10.0)
[2022-10-11] MEDS: MULTIVITAMINS/MINERALS THERAP 1 TAB PO SCH (08:25)
[2022-10-11] MEDS: TAMSULOSIN 0.4 MG CAP PO SCH ×2 (08:25→20:35)
[2022-10-11] MEDS: amLODIPine 5 MG TAB PO SCH (08:29)
[2022-10-11] MEDS: MAGNESIUM OXIDE 400MG TAB (MAG-OX) PO SCH (08:30)
[2022-10-11] MEDS: PANTOPRAZOLE 40MG TAB (PROTONIX) PO SCH (08:31)
[2022-10-11] MEDS: LACTOBACILLUS ACIDOPHILUS CAP (BACID) PO SCH ×2 (08:31→17:31)
[2022-10-11] MEDS: CARVedilol 12.5 MG TAB PO SCH ×2 (08:31→20:35)
[2022-10-11] MEDS: ACETAMINOPHEN 650MG ER TAB (TYLENOL ARTHRITIS) PO SCH ×2 (08:31→20:35)
[2022-10-11] MEDS: hydroCHLOROthiazide 12.5 MG CAPSULE PO SCH (08:31)
[2022-10-11] MEDS: LORATADINE 10 MG TAB PO SCH (08:32)
[2022-10-11] MEDS: traMADol 50 MG TAB PO SCH ×2 (08:32→14:16)
[2022-10-11] MEDS: CARBAMIDE PEROXIDE 6.5% OTIC SOLN 15ML AD SCH ×2 (08:33→20:36)
[2022-10-11] MEDS: HEPARIN SOD (PORCINE) 5000UNITS/ML 1ML VIAL/SYRINGE SC SCH ×2 (08:33→20:36)
[2022-10-11] MEDS: FLUTICASONE PROP 0.05% NASAL SPRAY 16 GM (FLONASE) NARES SCH ×2 (08:34→20:38)
[2022-10-11] MEDS: REMEDY PHYTOPLEX Z-GUARD PASTE 113GM TUBE (FROM STOREROOM PRODUCT) TOP SCH ×3 (08:34→20:38)
[2022-10-11] MEDS: SODIUM CHLORIDE NASAL 0.65% SPRAY BTL (OCEAN) SCH ×3 (08:34→20:37)
[2022-10-11 08:46] LABS: BLOOD UREA NITROGEN 16 MG/DL (9-23); CALCIUM LEVEL 8.3 MG/DL (8.3-10.6); CARBON DIOXIDE LEVEL 26 MMOL/L (20-31); CHLORIDE LEVEL 97 MMOL/L (98-107); GLOMERULAR FILTRATION RATE > 60.0 (>32); GLUCOSE, FASTING 161 MG/DL (74-106); POTASSIUM SERUM 3.9 MMOL/L (3.5-5.1); SODIUM LEVEL 132 MMOL/L (136-145)
[2022-10-11 14:00] VITALS: BP 140/66
[2022-10-11] MEDS: DICLOFENAC EPOLAMINE 1.3% PATCH TOP SCH ×2 (14:13→20:36)
[2022-10-11] MEDS: LOSARTAN 25 MG TAB PO SCH (14:14)
[2022-10-11] MEDS: LevoFLOXacin 250 MG TABLET PO SCH (15:42)
[2022-10-11 20:00] VITALS: BP 158/80
[2022-10-11] MEDS: ATORVASTATIN 10 MG TAB PO SCH (20:35)
[2022-10-11] MEDS: RAMELTEON 8 MG TAB (ROZEREM) PO SCH (20:35)
[2022-10-12 06:00] VITALS: BP 158/70
[2022-10-12] MEDS: LEVOTHYROXINE 75MCG TABLET (0.075MG) PO SCH (06:03)
[2022-10-12] MEDS: ACETAMINOPHEN 650MG ER TAB (TYLENOL ARTHRITIS) PO SCH ×2 (08:58→20:34)
[2022-10-12] MEDS: traMADol 50 MG TAB PO SCH ×2 (09:00→13:02)
[2022-10-12] MEDS: TAMSULOSIN 0.4 MG CAP PO SCH ×2 (09:01→20:34)
[2022-10-12] MEDS: MAGNESIUM OXIDE 400MG TAB (MAG-OX) PO SCH (09:02)
[2022-10-12] MEDS: LACTOBACILLUS ACIDOPHILUS CAP (BACID) PO SCH ×2 (09:02→17:16)
[2022-10-12] MEDS: MULTIVITAMINS/MINERALS THERAP 1 TAB PO SCH (09:02)
[2022-10-12] MEDS: PANTOPRAZOLE 40MG TAB (PROTONIX) PO SCH (09:03)
[2022-10-12] MEDS: HEPARIN SOD (PORCINE) 5000UNITS/ML 1ML VIAL/SYRINGE SC SCH ×2 (09:03→20:35)
[2022-10-12] MEDS: LORATADINE 10 MG TAB PO SCH (09:03)
[2022-10-12] MEDS: DICLOFENAC EPOLAMINE 1.3% PATCH TOP SCH ×2 (09:04→20:36)
[2022-10-12] MEDS: FLUTICASONE PROP 0.05% NASAL SPRAY 16 GM (FLONASE) NARES SCH ×2 (09:05→20:36)
[2022-10-12] MEDS: SODIUM CHLORIDE NASAL 0.65% SPRAY BTL (OCEAN) SCH ×3 (09:05→20:36)
[2022-10-12] MEDS: CARBAMIDE PEROXIDE 6.5% OTIC SOLN 15ML AD SCH ×2 (09:05→20:35)
[2022-10-12] MEDS: REMEDY PHYTOPLEX Z-GUARD PASTE 113GM TUBE (FROM STOREROOM PRODUCT) TOP SCH ×3 (09:06→20:37)
[2022-10-12] MEDS: hydroCHLOROthiazide 12.5 MG CAPSULE PO SCH (12:05)
[2022-10-12] MEDS: CARVedilol 12.5 MG TAB PO SCH ×2 (12:06→20:35)
[2022-10-12] MEDS: LOSARTAN 25 MG TAB PO SCH (12:07)
[2022-10-12] MEDS: amLODIPine 5 MG TAB PO SCH (12:07)
[2022-10-12 14:00] VITALS: BP 120/56
[2022-10-12] MEDS: LevoFLOXacin 250 MG TABLET PO SCH (16:06)
[2022-10-12 20:00] VITALS: BP 121/59
[2022-10-12] MEDS: ATORVASTATIN 10 MG TAB PO SCH (20:34)
[2022-10-12] MEDS: RAMELTEON 8 MG TAB (ROZEREM) PO SCH (20:34)
[2022-10-13] MEDS: LEVOTHYROXINE 75MCG TABLET (0.075MG) PO SCH (05:51)
[2022-10-13 06:00] VITALS: BP 145/65
[2022-10-13] MEDS: DICLOFENAC EPOLAMINE 1.3% PATCH TOP SCH ×2 (08:48→21:21)
[2022-10-13] MEDS: CARVedilol 12.5 MG TAB PO SCH ×2 (08:50→21:14)
[2022-10-13] MEDS: LACTOBACILLUS ACIDOPHILUS CAP (BACID) PO SCH ×2 (08:52→17:40)
[2022-10-13] MEDS: TAMSULOSIN 0.4 MG CAP PO SCH ×2 (08:52→21:13)
[2022-10-13] MEDS: ACETAMINOPHEN 650MG ER TAB (TYLENOL ARTHRITIS) PO SCH ×2 (08:52→21:13)
[2022-10-13] MEDS: traMADol 50 MG TAB PO SCH ×2 (08:52→13:34)
[2022-10-13] MEDS: amLODIPine 5 MG TAB PO SCH (08:53)
[2022-10-13] MEDS: hydroCHLOROthiazide 12.5 MG CAPSULE PO SCH (08:54)
[2022-10-13] MEDS: MULTIVITAMINS/MINERALS THERAP 1 TAB PO SCH (08:55)
[2022-10-13] MEDS: LORATADINE 10 MG TAB PO SCH (08:55)
[2022-10-13] MEDS: PANTOPRAZOLE 40MG TAB (PROTONIX) PO SCH (08:55)
[2022-10-13] MEDS: MAGNESIUM OXIDE 400MG TAB (MAG-OX) PO SCH (08:55)
[2022-10-13] MEDS: LOSARTAN 25 MG TAB PO SCH (08:56)
[2022-10-13] MEDS: FLUTICASONE PROP 0.05% NASAL SPRAY 16 GM (FLONASE) NARES SCH ×2 (08:57→21:15)
[2022-10-13] MEDS: CARBAMIDE PEROXIDE 6.5% OTIC SOLN 15ML AD SCH ×2 (08:57→21:14)
[2022-10-13] MEDS: SODIUM CHLORIDE NASAL 0.65% SPRAY BTL (OCEAN) SCH ×3 (08:57→21:15)
[2022-10-13] MEDS: HEPARIN SOD (PORCINE) 5000UNITS/ML 1ML VIAL/SYRINGE SC SCH ×2 (08:57→21:13)
[2022-10-13] MEDS: REMEDY PHYTOPLEX Z-GUARD PASTE 113GM TUBE (FROM STOREROOM PRODUCT) TOP SCH ×3 (08:58→21:15)
[2022-10-13 14:00] VITALS: BP 123/58
[2022-10-13] MEDS: LevoFLOXacin 250 MG TABLET PO SCH (14:28)
[2022-10-13 20:00] VITALS: BP 136/64
[2022-10-13] MEDS: RAMELTEON 8 MG TAB (ROZEREM) PO SCH (21:13)
[2022-10-13] MEDS: ATORVASTATIN 10 MG TAB PO SCH (21:13)
[2022-10-14] MEDS: LEVOTHYROXINE 75MCG TABLET (0.075MG) PO SCH (05:09)
[2022-10-14 06:00] VITALS: BP 151/67
[2022-10-14 06:02] LABS: BASO % 0.6 % (0.0-1.0); EOS # 0.4 10^3/uL (0.0-0.5); EOS % 5.3 % (0.0-3.0); HEMATOCRIT 26.3 % (36.0-47.0); HEMOGLOBIN 8.3 g/dl (12.0-15.5); MEAN CORPUSCULAR HGB CONC 31.6 g/dl (32.0-36.5); MEAN CORPUSCULAR VOLUME 88.9 fl (80.0-96.0); MONO # 0.7 10^3/uL (0.0-0.8); MONO % 9.5 % (2.0-8.0); NEUTROPHILS # 4.7 10^3/uL (1.5-8.5); NEUTROPHILS % 69.1 % (36.0-66.0); PLATELET COUNT, AUTOMATED 264 10^3/uL (150-450); RED BLOOD COUNT 2.96 10^6/uL (4.00-5.40); WHITE BLOOD COUNT 6.9 10^3/uL (4.0-10.0)
[2022-10-14 06:32] LABS: CALCIUM LEVEL 8.5 MG/DL (8.3-10.6); CREATININE FOR GFR 0.94 MG/DL (0.55-1.30); GLOMERULAR FILTRATION RATE 59.8 (>32); POTASSIUM SERUM 4.2 MMOL/L (3.5-5.1)
[2022-10-14] MEDS: traMADol 50 MG TAB PO SCH ×2 (08:00→09:31)
[2022-10-14] MEDS: REMEDY PHYTOPLEX Z-GUARD PASTE 113GM TUBE (FROM STOREROOM PRODUCT) TOP SCH ×3 (09:00→21:00)
[2022-10-14] MEDS: hydroCHLOROthiazide 12.5 MG CAPSULE PO SCH (09:15)
[2022-10-14] MEDS: MAGNESIUM OXIDE 400MG TAB (MAG-OX) PO SCH (09:17)
[2022-10-14] MEDS: HEPARIN SOD (PORCINE) 5000UNITS/ML 1ML VIAL/SYRINGE SC SCH ×2 (09:17→21:11)
[2022-10-14] MEDS: MULTIVITAMINS/MINERALS THERAP 1 TAB PO SCH (09:18)
[2022-10-14] MEDS: LORATADINE 10 MG TAB PO SCH (09:18)
[2022-10-14] MEDS: TAMSULOSIN 0.4 MG CAP PO SCH (09:18)
[2022-10-14] MEDS: PANTOPRAZOLE 40MG TAB (PROTONIX) PO SCH (09:18)
[2022-10-14] MEDS: SODIUM CHLORIDE NASAL 0.65% SPRAY BTL (OCEAN) SCH ×3 (09:27→21:12)
[2022-10-14] MEDS: FLUTICASONE PROP 0.05% NASAL SPRAY 16 GM (FLONASE) NARES SCH ×2 (09:27→21:12)
[2022-10-14] MEDS: DICLOFENAC EPOLAMINE 1.3% PATCH TOP SCH ×2 (09:28→21:00)
[2022-10-14] MEDS: LACTOBACILLUS ACIDOPHILUS CAP (BACID) PO SCH ×2 (09:31→17:25)
[2022-10-14] MEDS: CARVedilol 12.5 MG TAB PO SCH ×2 (09:32→21:11)
[2022-10-14] MEDS: amLODIPine 5 MG TAB PO SCH (09:32)
[2022-10-14] MEDS: LOSARTAN 25 MG TAB PO SCH (09:32)
[2022-10-14] MEDS: ACETAMINOPHEN 650MG ER TAB (TYLENOL ARTHRITIS) PO SCH ×2 (10:28→21:10)
[2022-10-14] MEDS ORDERED: oxyCODONE 5MG TAB PO PRN (10:35)
[2022-10-14 14:00] VITALS: BP 126/60
[2022-10-14 20:00] VITALS: BP 151/66
[2022-10-14] MEDS ORDERED: TERAZOSIN 1 MG CAP PO SCH (21:00)
[2022-10-14] MEDS: ATORVASTATIN 10 MG TAB PO SCH (21:08)
[2022-10-14] MEDS: RAMELTEON 8 MG TAB (ROZEREM) PO SCH (21:08)
[2022-10-15] MEDS ORDERED: VOLTAREN 1% TOP PRN
[2022-10-15] MEDS: LEVOTHYROXINE 75MCG TABLET (0.075MG) PO SCH (05:41)
[2022-10-15 06:00] VITALS: BP 157/67
[2022-10-15 06:38] LABS: BLOOD UREA NITROGEN 15 MG/DL (9-23); CALCIUM LEVEL 8.6 MG/DL (8.3-10.6); CARBON DIOXIDE LEVEL 31 MMOL/L (20-31); CHLORIDE LEVEL 96 MMOL/L (98-107); CREATININE FOR GFR 0.89 MG/DL (0.55-1.30); GLOMERULAR FILTRATION RATE > 60.0 (>32); GLUCOSE, FASTING 94 MG/DL (74-106); POTASSIUM SERUM 4.2 MMOL/L (3.5-5.1); SODIUM LEVEL 132 MMOL/L (136-145)
[2022-10-15] MEDS: LACTOBACILLUS ACIDOPHILUS CAP (BACID) PO SCH ×2 (09:24→17:22)
[2022-10-15] MEDS: ACETAMINOPHEN 650MG ER TAB (TYLENOL ARTHRITIS) PO SCH ×2 (09:25→20:56)
[2022-10-15] MEDS: PANTOPRAZOLE 40MG TAB (PROTONIX) PO SCH (09:25)
[2022-10-15] MEDS: LORATADINE 10 MG TAB PO SCH (09:25)
[2022-10-15] MEDS: HEPARIN SOD (PORCINE) 5000UNITS/ML 1ML VIAL/SYRINGE SC SCH ×2 (09:26→20:59)
[2022-10-15] MEDS: amLODIPine 5 MG TAB PO SCH (09:26)
[2022-10-15] MEDS: MULTIVITAMINS/MINERALS THERAP 1 TAB PO SCH (09:26)
[2022-10-15] MEDS: MAGNESIUM OXIDE 400MG TAB (MAG-OX) PO SCH (09:26)
[2022-10-15] MEDS: CARVedilol 12.5 MG TAB PO SCH ×2 (09:27→20:57)
[2022-10-15] MEDS: LOSARTAN 25 MG TAB PO SCH (09:27)
[2022-10-15] MEDS: SODIUM CHLORIDE NASAL 0.65% SPRAY BTL (OCEAN) SCH ×3 (09:28→20:59)
[2022-10-15] MEDS: FLUTICASONE PROP 0.05% NASAL SPRAY 16 GM (FLONASE) NARES SCH ×2 (09:28→20:59)
[2022-10-15] MEDS: REMEDY PHYTOPLEX Z-GUARD PASTE 113GM TUBE (FROM STOREROOM PRODUCT) TOP SCH ×3 (09:28→20:59)
[2022-10-15] MEDS ORDERED: amLODIPine 5 MG TAB PO ONE (10:00)
[2022-10-15 14:00] VITALS: BP 118/55
[2022-10-15] MEDS ORDERED: MAALOX 30 ML SUSP *UDC PO PRN (16:40)
[2022-10-15] MEDS ORDERED: FLEET ENEMA PR ONE (17:00)
[2022-10-15] MEDS: BISACODYL 5MG TAB PO SCH (17:22)
[2022-10-15] MEDS: DOCUSATE SODIUM 100MG CAPSULE PO SCH ×2 (17:22→20:58)
[2022-10-15 20:00] VITALS: BP 142/65
[2022-10-15] MEDS: RAMELTEON 8 MG TAB (ROZEREM) PO SCH (20:57)
[2022-10-15] MEDS: TERAZOSIN 1 MG CAP PO SCH (20:57)
[2022-10-15] MEDS: SENNA 8.6 MG TAB (SENOKOT) PO SCH (20:58)
[2022-10-15] MEDS: ATORVASTATIN 10 MG TAB PO SCH (20:58)
[2022-10-16] MEDS: LEVOTHYROXINE 75MCG TABLET (0.075MG) PO SCH (05:40)
[2022-10-16 06:00] VITALS: BP 128/64
[2022-10-16 08:27] VITALS: BP 136/64
[2022-10-16] MEDS: HEPARIN SOD (PORCINE) 5000UNITS/ML 1ML VIAL/SYRINGE SC SCH ×2 (08:29→20:42)
[2022-10-16] MEDS: ACETAMINOPHEN 650MG ER TAB (TYLENOL ARTHRITIS) PO SCH ×2 (08:30→20:42)
[2022-10-16] MEDS: CARVedilol 12.5 MG TAB PO SCH ×2 (08:30→20:41)
[2022-10-16] MEDS: LOSARTAN 50MG TABLET PO SCH (08:30)
[2022-10-16] MEDS: LACTOBACILLUS ACIDOPHILUS CAP (BACID) PO SCH ×2 (08:30→18:02)
[2022-10-16] MEDS: MAGNESIUM OXIDE 400MG TAB (MAG-OX) PO SCH (08:31)
[2022-10-16] MEDS: DOCUSATE SODIUM 100MG CAPSULE PO SCH ×3 (08:31→20:39)
[2022-10-16] MEDS: MULTIVITAMINS/MINERALS THERAP 1 TAB PO SCH (08:31)
[2022-10-16] MEDS: amLODIPine 5 MG TAB PO SCH (08:32)
[2022-10-16] MEDS: PANTOPRAZOLE 40MG TAB (PROTONIX) PO SCH (08:32)
[2022-10-16] MEDS: LORATADINE 10 MG TAB PO SCH (08:32)
[2022-10-16] MEDS: BISACODYL 5MG TAB PO SCH (08:32)
[2022-10-16] MEDS: SODIUM CHLORIDE NASAL 0.65% SPRAY BTL (OCEAN) SCH ×3 (08:33→20:43)
[2022-10-16] MEDS: FLUTICASONE PROP 0.05% NASAL SPRAY 16 GM (FLONASE) NARES SCH ×2 (08:35→20:43)
[2022-10-16] MEDS: REMEDY PHYTOPLEX Z-GUARD PASTE 113GM TUBE (FROM STOREROOM PRODUCT) TOP SCH ×3 (08:36→20:48)
[2022-10-16 10:52] LABS: BASO % 0.4 % (0.0-1.0); EOS # 0.4 10^3/uL (0.0-0.5); EOS % 3.8 % (0.0-3.0); HEMATOCRIT 27.5 % (36.0-47.0); HEMOGLOBIN 8.7 g/dl (12.0-15.5); LYMPH # 0.8 10^3/uL (1.5-5.0); LYMPH % 8.1 % (24.0-44.0); MEAN CORPUSCULAR HEMOGLOBIN 28.2 pg (27.0-33.0); MEAN CORPUSCULAR HGB CONC 31.6 g/dl (32.0-36.5); MONO # 0.9 10^3/uL (0.0-0.8); MONO % 9.3 % (2.0-8.0); NEUTROPHILS # 7.3 10^3/uL (1.5-8.5); NEUTROPHILS % 76.7 % (36.0-66.0); PLATELET COUNT, AUTOMATED 286 10^3/uL (150-450); RED BLOOD COUNT 3.09 10^6/uL (4.00-5.40); WHITE BLOOD COUNT 9.5 10^3/uL (4.0-10.0)
[2022-10-16 11:14] LABS: BLOOD UREA NITROGEN 17 MG/DL (9-23); CALCIUM LEVEL 9.2 MG/DL (8.3-10.6); CARBON DIOXIDE LEVEL 29 MMOL/L (20-31); CHLORIDE LEVEL 96 MMOL/L (98-107); CREATININE FOR GFR 0.92 MG/DL (0.55-1.30); GLOMERULAR FILTRATION RATE > 60.0 (>32); GLUCOSE, FASTING 88 MG/DL (74-106); POTASSIUM SERUM 4.3 MMOL/L (3.5-5.1); SODIUM LEVEL 132 MMOL/L (136-145)
[2022-10-16 14:00] VITALS: BP 123/61
[2022-10-16 20:00] VITALS: BP 130/62
[2022-10-16] MEDS: SENNA 8.6 MG TAB (SENOKOT) PO SCH (20:39)
[2022-10-16] MEDS: RAMELTEON 8 MG TAB (ROZEREM) PO SCH (20:41)
[2022-10-16] MEDS: ATORVASTATIN 10 MG TAB PO SCH (20:41)
[2022-10-16] MEDS: TAMSULOSIN 0.4 MG CAP PO SCH (20:42)
[2022-10-16] MEDS: TERAZOSIN 1 MG CAP PO SCH (20:42)
[2022-10-17] MEDS: LEVOTHYROXINE 75MCG TABLET (0.075MG) PO SCH (05:28)
[2022-10-17 06:00] VITALS: BP 132/63
[2022-10-17] MEDS: HEPARIN SOD (PORCINE) 5000UNITS/ML 1ML VIAL/SYRINGE SC SCH ×2 (08:09→20:30)
[2022-10-17] MEDS: ACETAMINOPHEN 650MG ER TAB (TYLENOL ARTHRITIS) PO SCH ×2 (08:10→20:30)
[2022-10-17] MEDS: LACTOBACILLUS ACIDOPHILUS CAP (BACID) PO SCH ×2 (08:10→17:09)
[2022-10-17] MEDS: DOCUSATE SODIUM 100MG CAPSULE PO SCH ×3 (08:10→20:31)
[2022-10-17] MEDS: LORATADINE 10 MG TAB PO SCH (08:10)
[2022-10-17] MEDS: LOSARTAN 50MG TABLET PO SCH (08:10)
[2022-10-17] MEDS: BISACODYL 5MG TAB PO SCH (08:11)
[2022-10-17] MEDS: MULTIVITAMINS/MINERALS THERAP 1 TAB PO SCH (08:11)
[2022-10-17] MEDS: TAMSULOSIN 0.4 MG CAP PO SCH ×2 (08:11→20:30)
[2022-10-17] MEDS: amLODIPine 5 MG TAB PO SCH (08:11)
[2022-10-17] MEDS: CARVedilol 12.5 MG TAB PO SCH ×2 (08:12→20:33)
[2022-10-17] MEDS: MAGNESIUM OXIDE 400MG TAB (MAG-OX) PO SCH (08:12)
[2022-10-17] MEDS: PANTOPRAZOLE 40MG TAB (PROTONIX) PO SCH (08:12)
[2022-10-17] MEDS: FLUTICASONE PROP 0.05% NASAL SPRAY 16 GM (FLONASE) NARES SCH ×2 (08:13→20:31)
[2022-10-17] MEDS: SODIUM CHLORIDE NASAL 0.65% SPRAY BTL (OCEAN) SCH ×3 (08:13→20:30)
[2022-10-17] MEDS: REMEDY PHYTOPLEX Z-GUARD PASTE 113GM TUBE (FROM STOREROOM PRODUCT) TOP SCH ×3 (08:14→20:32)
[2022-10-17 14:00] VITALS: BP 119/56
[2022-10-17 20:00] VITALS: BP 121/57
[2022-10-17] MEDS: ATORVASTATIN 10 MG TAB PO SCH (20:30)
[2022-10-17] MEDS: SENNA 8.6 MG TAB (SENOKOT) PO SCH (20:31)
[2022-10-17] MEDS: TERAZOSIN 1 MG CAP PO SCH (20:32)
[2022-10-18] MEDS: LEVOTHYROXINE 75MCG TABLET (0.075MG) PO SCH (05:49)
[2022-10-18 06:00] VITALS: BP 136/60
[2022-10-18 06:46] LABS: BASO # 0.1 10^3/uL (0.0-0.2); BASO % 0.7 % (0.0-1.0); EOS # 0.4 10^3/uL (0.0-0.5); EOS % 4.9 % (0.0-3.0); HEMATOCRIT 27.6 % (36.0-47.0); HEMOGLOBIN 8.8 g/dl (12.0-15.5); LYMPH # 1.3 10^3/uL (1.5-5.0); LYMPH % 16.6 % (24.0-44.0); MEAN CORPUSCULAR HEMOGLOBIN 28.5 pg (27.0-33.0); MEAN CORPUSCULAR HGB CONC 31.9 g/dl (32.0-36.5); MEAN CORPUSCULAR VOLUME 89.3 fl (80.0-96.0); MONO # 0.7 10^3/uL (0.0-0.8); MONO % 8.4 % (2.0-8.0); NEUTROPHILS # 5.5 10^3/uL (1.5-8.5); NEUTROPHILS % 68.3 % (36.0-66.0); PLATELET COUNT, AUTOMATED 298 10^3/uL (150-450); RED BLOOD COUNT 3.09 10^6/uL (4.00-5.40); WHITE BLOOD COUNT 8.1 10^3/uL (4.0-10.0)
[2022-10-18 07:20] LABS: BLOOD UREA NITROGEN 20 MG/DL (9-23); CALCIUM LEVEL 8.8 MG/DL (8.3-10.6); CARBON DIOXIDE LEVEL 31 MMOL/L (20-31); CHLORIDE LEVEL 99 MMOL/L (98-107); CREATININE FOR GFR 0.88 MG/DL (0.55-1.30); GLOMERULAR FILTRATION RATE > 60.0 (>32); GLUCOSE, FASTING 87 MG/DL (74-106); POTASSIUM SERUM 4.5 MMOL/L (3.5-5.1); SODIUM LEVEL 136 MMOL/L (136-145)
[2022-10-18] MEDS: REMEDY PHYTOPLEX Z-GUARD PASTE 113GM TUBE (FROM STOREROOM PRODUCT) TOP SCH ×3 (09:00→21:00)
[2022-10-18] MEDS: MULTIVITAMINS/MINERALS THERAP 1 TAB PO SCH (11:11)
[2022-10-18] MEDS: BISACODYL 5MG TAB PO SCH (11:11)
[2022-10-18] MEDS: TAMSULOSIN 0.4 MG CAP PO SCH ×2 (11:11→21:16)
[2022-10-18] MEDS: LACTOBACILLUS ACIDOPHILUS CAP (BACID) PO SCH ×2 (11:11→17:18)
[2022-10-18] MEDS: ACETAMINOPHEN 650MG ER TAB (TYLENOL ARTHRITIS) PO SCH ×2 (11:12→21:16)
[2022-10-18] MEDS: amLODIPine 5 MG TAB PO SCH (11:12)
[2022-10-18] MEDS: MAGNESIUM OXIDE 400MG TAB (MAG-OX) PO SCH (11:12)
[2022-10-18] MEDS: DOCUSATE SODIUM 100MG CAPSULE PO SCH ×3 (11:12→21:00)
[2022-10-18] MEDS: CARVedilol 12.5 MG TAB PO SCH ×2 (11:13→21:16)
[2022-10-18] MEDS: LOSARTAN 50MG TABLET PO SCH (11:13)
[2022-10-18] MEDS: LORATADINE 10 MG TAB PO SCH (11:13)
[2022-10-18] MEDS: PANTOPRAZOLE 40MG TAB (PROTONIX) PO SCH (11:13)
[2022-10-18] MEDS: HEPARIN SOD (PORCINE) 5000UNITS/ML 1ML VIAL/SYRINGE SC SCH ×2 (11:14→21:15)
[2022-10-18] MEDS: FLUTICASONE PROP 0.05% NASAL SPRAY 16 GM (FLONASE) NARES SCH ×2 (11:14→21:00)
[2022-10-18] MEDS: SODIUM CHLORIDE NASAL 0.65% SPRAY BTL (OCEAN) SCH ×3 (11:14→21:00)
[2022-10-18 14:00] VITALS: BP 131/59
[2022-10-18 20:00] VITALS: BP 126/59
[2022-10-18] MEDS: SENNA 8.6 MG TAB (SENOKOT) PO SCH (21:00)
[2022-10-18] MEDS: TERAZOSIN 1 MG CAP PO SCH (21:17)
[2022-10-18] MEDS: ATORVASTATIN 10 MG TAB PO SCH (21:17)
[2022-10-19 06:00] VITALS: BP 150/67
[2022-10-19] MEDS: LEVOTHYROXINE 75MCG TABLET (0.075MG) PO SCH (06:03)
[2022-10-19] MEDS: REMEDY PHYTOPLEX Z-GUARD PASTE 113GM TUBE (FROM STOREROOM PRODUCT) TOP SCH ×3 (09:00→20:52)
[2022-10-19] MEDS: BISACODYL 5MG TAB PO SCH (09:00)
[2022-10-19] MEDS: DOCUSATE SODIUM 100MG CAPSULE PO SCH ×3 (09:00→20:43)
[2022-10-19] MEDS: LACTOBACILLUS ACIDOPHILUS CAP (BACID) PO SCH ×2 (09:04→17:16)
[2022-10-19] MEDS: LORATADINE 10 MG TAB PO SCH (09:04)
[2022-10-19] MEDS: CARVedilol 12.5 MG TAB PO SCH ×2 (09:05→20:45)
[2022-10-19] MEDS: LOSARTAN 50MG TABLET PO SCH (09:05)
[2022-10-19] MEDS: PANTOPRAZOLE 40MG TAB (PROTONIX) PO SCH (09:06)
[2022-10-19] MEDS: TAMSULOSIN 0.4 MG CAP PO SCH ×2 (09:06→20:46)
[2022-10-19] MEDS: MAGNESIUM OXIDE 400MG TAB (MAG-OX) PO SCH (09:06)
[2022-10-19] MEDS: amLODIPine 5 MG TAB PO SCH (09:06)
[2022-10-19] MEDS: MULTIVITAMINS/MINERALS THERAP 1 TAB PO SCH (09:06)
[2022-10-19] MEDS: ACETAMINOPHEN 650MG ER TAB (TYLENOL ARTHRITIS) PO SCH ×2 (09:07→20:54)
[2022-10-19] MEDS: FLUTICASONE PROP 0.05% NASAL SPRAY 16 GM (FLONASE) NARES SCH ×2 (09:07→20:52)
[2022-10-19] MEDS: SODIUM CHLORIDE NASAL 0.65% SPRAY BTL (OCEAN) SCH ×3 (09:07→20:52)
[2022-10-19] MEDS: HEPARIN SOD (PORCINE) 5000UNITS/ML 1ML VIAL/SYRINGE SC SCH ×2 (09:07→20:42)
[2022-10-19 14:00] VITALS: BP 115/55
[2022-10-19 20:00] VITALS: BP 123/58
[2022-10-19] MEDS: TERAZOSIN 1 MG CAP PO SCH (20:51)
[2022-10-19] MEDS: ATORVASTATIN 10 MG TAB PO SCH (20:52)
[2022-10-19] MEDS: SENNA 8.6 MG TAB (SENOKOT) PO SCH (20:52)
[2022-10-20 06:00] VITALS: BP 128/60
[2022-10-20] MEDS: LEVOTHYROXINE 75MCG TABLET (0.075MG) PO SCH (06:00)
[2022-10-20] MEDS: LACTOBACILLUS ACIDOPHILUS CAP (BACID) PO SCH ×2 (07:45→17:00)
[2022-10-20] MEDS: DOCUSATE SODIUM 100MG CAPSULE PO SCH ×3 (07:46→20:44)
[2022-10-20] MEDS: LOSARTAN 50MG TABLET PO SCH (07:47)
[2022-10-20] MEDS: ACETAMINOPHEN 650MG ER TAB (TYLENOL ARTHRITIS) PO SCH ×2 (07:47→20:43)
[2022-10-20] MEDS: TAMSULOSIN 0.4 MG CAP PO SCH ×2 (07:48→20:43)
[2022-10-20] MEDS: amLODIPine 5 MG TAB PO SCH (07:48)
[2022-10-20] MEDS: PANTOPRAZOLE 40MG TAB (PROTONIX) PO SCH (07:48)
[2022-10-20] MEDS: CARVedilol 12.5 MG TAB PO SCH ×2 (07:48→20:43)
[2022-10-20] MEDS: MULTIVITAMINS/MINERALS THERAP 1 TAB PO SCH (07:49)
[2022-10-20] MEDS: HEPARIN SOD (PORCINE) 5000UNITS/ML 1ML VIAL/SYRINGE SC SCH ×2 (07:49→20:40)
[2022-10-20] MEDS: MAGNESIUM OXIDE 400MG TAB (MAG-OX) PO SCH (07:49)
[2022-10-20] MEDS: FLUTICASONE PROP 0.05% NASAL SPRAY 16 GM (FLONASE) NARES SCH ×2 (07:50→20:45)
[2022-10-20] MEDS: SODIUM CHLORIDE NASAL 0.65% SPRAY BTL (OCEAN) SCH ×3 (07:50→20:44)
[2022-10-20] MEDS: REMEDY PHYTOPLEX Z-GUARD PASTE 113GM TUBE (FROM STOREROOM PRODUCT) TOP SCH ×3 (07:50→20:45)
[2022-10-20 08:04] LABS: HEMATOCRIT 30.8 % (36.0-47.0); MEAN CORPUSCULAR HEMOGLOBIN 28.7 pg (27.0-33.0); MEAN CORPUSCULAR HGB CONC 32.5 g/dl (32.0-36.5); MEAN CORPUSCULAR VOLUME 88.5 fl (80.0-96.0); PLATELET COUNT, AUTOMATED 336 10^3/uL (150-450); RED BLOOD COUNT 3.48 10^6/uL (4.00-5.40)
[2022-10-20] MEDS: LORATADINE 10 MG TAB PO SCH (09:00)
[2022-10-20] MEDS: BISACODYL 5MG TAB PO SCH (09:00)
[2022-10-20] MEDS: LINEZOLID 600MG TABLET (ZYVOX) PO SCH ×2 (09:00→20:40)
[2022-10-20] MEDS ORDERED: PROB250C PO (10:05)
[2022-10-20] MEDS ORDERED: COZA50TA PO (10:05)
[2022-10-20] MEDS ORDERED: SYNT75TA PO (10:05)
[2022-10-20] MEDS ORDERED: AMLO1TAB24 PO (10:05)
[2022-10-20] MEDS ORDERED: TERA1CA PO (10:05)
[2022-10-20] MEDS ORDERED: ATOR1TAB19 PO (10:05)
[2022-10-20] MEDS ORDERED: LINE1TAB6 PO (10:05)
[2022-10-20] MEDS ORDERED: FLOM0.4C39 PO (10:05)
[2022-10-20] MEDS ORDERED: CARV25TA PO (10:05)
[2022-10-20] MEDS ORDERED: HYDR-643 PO (10:05)
[2022-10-20 14:00] VITALS: BP 116/56
[2022-10-20 20:00] VITALS: BP 125/60
[2022-10-20] MEDS: TERAZOSIN 1 MG CAP PO SCH (20:42)
[2022-10-20] MEDS: ATORVASTATIN 10 MG TAB PO SCH (20:43)
[2022-10-20] MEDS: SENNA 8.6 MG TAB (SENOKOT) PO SCH (21:00)
[2022-10-21] MEDS: LEVOTHYROXINE 75MCG TABLET (0.075MG) PO SCH (05:36)
[2022-10-21 06:00] VITALS: BP 123/59
[2022-10-21] MEDS: LACTOBACILLUS ACIDOPHILUS CAP (BACID) PO SCH (08:54)
[2022-10-21] MEDS: LORATADINE 10 MG TAB PO SCH (08:54)
[2022-10-21] MEDS: PANTOPRAZOLE 40MG TAB (PROTONIX) PO SCH (08:54)
[2022-10-21] MEDS: MAGNESIUM OXIDE 400MG TAB (MAG-OX) PO SCH (08:54)
[2022-10-21] MEDS: HEPARIN SOD (PORCINE) 5000UNITS/ML 1ML VIAL/SYRINGE SC SCH (08:54)
[2022-10-21 08:55] VITALS: BP 123/59
[2022-10-21] MEDS: LINEZOLID 600MG TABLET (ZYVOX) PO SCH (08:55)
[2022-10-21] MEDS: MULTIVITAMINS/MINERALS THERAP 1 TAB PO SCH (08:55)
[2022-10-21] MEDS: amLODIPine 5 MG TAB PO SCH (08:55)
[2022-10-21] MEDS: LOSARTAN 50MG TABLET PO SCH (08:55)
[2022-10-21] MEDS: ACETAMINOPHEN 650MG ER TAB (TYLENOL ARTHRITIS) PO SCH (08:55)
[2022-10-21] MEDS: SODIUM CHLORIDE NASAL 0.65% SPRAY BTL (OCEAN) SCH (08:56)
[2022-10-21] MEDS: DOCUSATE SODIUM 100MG CAPSULE PO SCH (08:56)
[2022-10-21] MEDS: TAMSULOSIN 0.4 MG CAP PO SCH (08:56)
[2022-10-21] MEDS: CARVedilol 12.5 MG TAB PO SCH (08:56)
[2022-10-21] MEDS: BISACODYL 5MG TAB PO SCH (08:56)
[2022-10-21] MEDS: FLUTICASONE PROP 0.05% NASAL SPRAY 16 GM (FLONASE) NARES SCH (08:57)
[2022-10-21] MEDS: REMEDY PHYTOPLEX Z-GUARD PASTE 113GM TUBE (FROM STOREROOM PRODUCT) TOP SCH (08:57)
[2022-10-21 14:00] VITALS: BP 134/60
== END 2022-10-21 15:55 | disposition home health service (06) | DRG 72 ==
LOC: M PM&R 16:40
PROVIDERS: ADMIT Physical Medicine & Rehabilitation; ATTEND Physical Medicine & Rehabilitation
DX: G93.41 Metabolic encephalopathy (principal); H49.23 Sixth [abducent] nerve palsy, bilateral; R26.89 Other abnormalities of gait and mobility; H53.2 Diplopia; I10 Essential (primary) hypertension; R33.9 Retention of urine, unspecified; N32.9 Bladder disorder, unspecified; K57.90 Diverticulosis of intestine, part unspecified, without perforation or abscess without bleeding; E78.5 Hyperlipidemia, unspecified; K21.9 Gastro-esophageal reflux disease without esophagitis; M19.90 Unspecified osteoarthritis, unspecified site; E03.9 Hypothyroidism, unspecified; Z85.3 Personal history of malignant neoplasm of breast; Z87.440 Personal history of urinary (tract) infections; Z74.09 Other reduced mobility; Z74.1 Need for assistance with personal care; R53.1 Weakness; Z90.13 Acquired absence of bilateral breasts and nipples; Z98.82 Breast implant status; Z87.891 Personal history of nicotine dependence; Z79.890 Hormone replacement therapy; Z79.899 Other long term (current) drug therapy

== ENCOUNTER → 2022-10-29 | Outpatient (REF) | payer MEDICARE, BC ==
[~2022-10-29] MED LIST changes: +AMLO1TAB24 PO; +COZA50TA PO; +FLOM0.4C39 PO; +HYDR-643 PO; +LINE1TAB6 PO; +TERA1CA PO
[2022-10-29 21:07] LABS: APPEARANCE, URINE CLOUDY (CLEAR); BACTERIA, URINE AUTO 3+ (NEGATIVE); BILIRUBIN, URINE AUTO NEGATIVE (NEGATIVE); BLOOD, URINE BLOOD 1+ (NEGATIVE); COLOR, URINE YELLOW (YELLOW); GLUCOSE, URINE (UA) AUTO NEGATIVE (NEGATIVE); KETONE, URINE AUTO NEGATIVE (NEGATIVE); LEUKOCYTE ESTERASE, URINE AUTO 3+ (NEGATIVE); MUCUS, URINE SMALL (NEGATIVE); NITRITE, URINE AUTO POSITIVE (NEGATIVE); PROTEIN, URINE AUTO NEGATIVE (NEGATIVE); RBC, URINE AUTO 4 /HPF (0-3); SPECIFIC GRAVITY URINE AUTO 1.009 (1.002-1.035); SQUAMOUS EPITHELIAL CELL UR AU 4 /HPF (0-6); UROBILINOGEN, URINE AUTO 0.2 mg/dL (0.0-2.0); WBC, URINE AUTO TNTC /HPF (0-3)
== END ==
LOC: M LAB REF 20:33
PROVIDERS: ATTEND Internal Medicine Hematology
DX: R30.0 Dysuria (principal)

== ENCOUNTER → 2022-11-12 | Outpatient (REF) | payer MEDICARE, BC ==
[2022-11-13 11:05] LABS: APPEARANCE, URINE TURBID (CLEAR); BACTERIA, URINE AUTO 1+ (NEGATIVE); BILIRUBIN, URINE AUTO NEGATIVE (NEGATIVE); BLOOD, URINE BLOOD 1+ (NEGATIVE); COLOR, URINE YELLOW (YELLOW); GLUCOSE, URINE (UA) AUTO NEGATIVE (NEGATIVE); KETONE, URINE AUTO NEGATIVE (NEGATIVE); LEUKOCYTE ESTERASE, URINE AUTO 3+ (NEGATIVE); MUCUS, URINE SMALL (NEGATIVE); NITRITE, URINE AUTO POSITIVE (NEGATIVE); PROTEIN, URINE AUTO 1+ mg/dL (NEGATIVE); RBC, URINE AUTO 16 /HPF (0-3); SQUAMOUS EPITHELIAL CELL UR AU 6 /HPF (0-6); UROBILINOGEN, URINE AUTO 0.2 mg/dL (0.0-2.0); WBC, URINE AUTO TNTC /HPF (0-3)
== END ==
LOC: M SHH 10:32
PROVIDERS: ATTEND Internal Medicine Hematology
DX: R30.0 Dysuria (principal)

== ENCOUNTER 2022-11-22 11:31 | Outpatient (CLI) | payer MEDICARE, BC ==
[~2022-11-22] VITALS: Ht 162.6 cm; Wt 64.9 kg
[~2022-11-22 11:31] MED LIST changes: +ALBUTEROL SULFATE 2.5MG/0.5ML INH NEB SOLN INH PRN; +EPINEPHrine INJ 1 MG/ML 1ML AMP IM PRN; +diphenhydrAMINE 50MG/ML VIAL IV PRN; +methylPREDNISolone 125MG 2ML VIAL IV PRN
[2022-11-22 11:45] VITALS: BP 163/82
[2022-11-22] MEDS ORDERED: FERRIC CARBOXYMALTOSE INJ 750 MG in NS 250 ML (>50kg) IV ONE ×3 (12:00)
[2022-11-22] MEDS ORDERED: NS 1,000 ML IV SCH (12:00)
[2022-11-22 13:15] VITALS: BP 170/83
== END 2022-11-22 13:15 ==
LOC: M INFU 11:31
PROVIDERS: ATTEND Internal Medicine Hematology
DX: D50.9 Iron deficiency anemia, unspecified (principal); Z88.8 Allergy status to other drugs, medicaments and biological substances
CPT/HCPCS: 96365; J1439

== ENCOUNTER → 2023-02-14 | Outpatient (CLI) | payer MEDICARE, BC ==
[~2023-02-14] MED LIST changes: -ALBUTEROL SULFATE 2.5MG/0.5ML INH NEB SOLN INH PRN; -COZA50TA PO; -EPINEPHrine INJ 1 MG/ML 1ML AMP IM PRN; +LOSA-528 PO; -diphenhydrAMINE 50MG/ML VIAL IV PRN; -methylPREDNISolone 125MG 2ML VIAL IV PRN
[2023-02-14 14:25] LABS: HEMATOCRIT 36.3 % (36.0-47.0); HEMOGLOBIN 11.7 g/dl (12.0-15.5); MEAN CORPUSCULAR HEMOGLOBIN 29.8 pg (27.0-33.0); MEAN CORPUSCULAR HGB CONC 32.2 g/dl (32.0-36.5); MEAN CORPUSCULAR VOLUME 92.6 fl (80.0-96.0); PLATELET COUNT, AUTOMATED 237 10^3/uL (150-450); RED BLOOD COUNT 3.92 10^6/uL (4.00-5.40); WHITE BLOOD COUNT 6.5 10^3/uL (4.0-10.0)
[2023-02-14 14:34] LABS: IRON (FE) 73 UG/DL (50-170); PERCENT SATURATION 22.6 % (13.2-45.0); TOTAL IRON BINDING CAPACITY 323 UG/DL (250-425)
[2023-02-14 14:35] LABS: ALBUMIN 3.9 G/DL (3.2-5.2); ALKALINE PHOSPHATASE 93 U/L (46-116); ALT/SGPT 13 U/L (7.0-40); AST/SGOT 12 U/L (<34); BILIRUBIN,TOTAL 0.8 MG/DL (0.3-1.2); BLOOD UREA NITROGEN 24 MG/DL (9-23); C REACTIVE PROTEIN QUANTITATIV < 0.40 MG/DL (<1.0); CALCIUM LEVEL 9.6 MG/DL (8.3-10.6); CARBON DIOXIDE LEVEL 28 MMOL/L (20-31); CHLORIDE LEVEL 103 MMOL/L (98-107); CHOLESTEROL LEVEL 177 MG/DL (<200); CHOLESTEROL RISK RATIO 2.67 (<5); CREATININE FOR GFR 0.93 MG/DL (0.55-1.30); GLOMERULAR FILTRATION RATE > 60.0 (>32); GLUCOSE, FASTING 108 MG/DL (74-106); HDL CHOLESTEROL 66.2 MG/DL (>40); LDL CHOLESTEROL 85.4 MG/DL (<100); NON-HDL-C 110.8 MG/DL; POTASSIUM SERUM 4.8 MMOL/L (3.5-5.1); SODIUM LEVEL 138 MMOL/L (136-145); TOTAL PROTEIN 6.8 G/DL (5.7-8.2); TRIGLYCERIDES LEVEL 127 MG/DL (<150)
[2023-02-14 14:36] LABS: FERRITIN 346.2 NG/ML (7.3-270.7); FREE T4 1.44 NG/DL (0.89-1.76)
[2023-02-14 14:37] LABS: THYROID STIMULATING HORMONE 2.041 uIU/ML (0.55-4.78); TOTAL 25(OH) VITAMIN D 39.8 NG/ML (20.0-100.0); VITAMIN B12 LEVEL 442 PG/ML (211-911)
[2023-02-14 15:29] LABS: HEMOGLOBIN A1c 5.6 % (4.0-6.0)
== END ==
LOC: M PLALAB 09:04
PROVIDERS: ATTEND Internal Medicine Hematology
DX: D50.9 Iron deficiency anemia, unspecified (principal); E07.9 Disorder of thyroid, unspecified; E78.00 Pure hypercholesterolemia, unspecified

== ENCOUNTER → 2023-02-17 | Outpatient (REF) | payer MEDICARE, BC ==
[2023-02-17 18:58] LABS: APPEARANCE, URINE CLOUDY (CLEAR); BACTERIA, URINE AUTO 1+ (NEGATIVE); BILIRUBIN, URINE AUTO NEGATIVE (NEGATIVE); BLOOD, URINE BLOOD 1+ (NEGATIVE); COLOR, URINE AMBER (YELLOW); GLUCOSE, URINE (UA) AUTO NEGATIVE (NEGATIVE); KETONE, URINE AUTO NEGATIVE (NEGATIVE); LEUKOCYTE ESTERASE, URINE AUTO 3+ (NEGATIVE); MUCUS, URINE SMALL (NEGATIVE); NITRITE, URINE AUTO NEGATIVE (NEGATIVE); PROTEIN, URINE AUTO NEGATIVE (NEGATIVE); RBC, URINE AUTO 3 /HPF (0-3); SQUAMOUS EPITHELIAL CELL UR AU 1 /HPF (0-6); UROBILINOGEN, URINE AUTO 0.2 mg/dL (0.0-2.0); WBC, URINE AUTO TNTC /HPF (0-3)
== END ==
LOC: M SFHCPLAZ 17:03
PROVIDERS: ATTEND Internal Medicine Hematology
DX: R35.0 Frequency of micturition (principal)

== ENCOUNTER → 2023-03-03 | Outpatient (REF) | payer MEDICARE, BC | LOC: M SFHCPLAZ 17:06 | PROVIDERS: ATTEND Internal Medicine Hematology | DX: N39.0 Urinary tract infection, site not specified (principal) ==

== ENCOUNTER → 2023-05-26 | Outpatient (CLI) | payer MEDICARE, BC ==
[2023-05-26 15:04] LABS: HEMATOCRIT 33.5 % (36.0-47.0); HEMOGLOBIN 10.9 g/dl (12.0-15.5); MEAN CORPUSCULAR HEMOGLOBIN 30.2 pg (27.0-33.0); MEAN CORPUSCULAR HGB CONC 32.5 g/dl (32.0-36.5); MEAN CORPUSCULAR VOLUME 92.8 fl (80.0-96.0); PLATELET COUNT, AUTOMATED 260 10^3/uL (150-450); RED BLOOD COUNT 3.61 10^6/uL (4.00-5.40); WHITE BLOOD COUNT 8.3 10^3/uL (4.0-10.0)
[2023-05-26 16:16] LABS: APPEARANCE, URINE CLOUDY (CLEAR); BACTERIA, URINE AUTO 2+ (NEGATIVE); BILIRUBIN, URINE AUTO NEGATIVE (NEGATIVE); BLOOD, URINE BLOOD NEGATIVE (NEGATIVE); COLOR, URINE YELLOW (YELLOW); GLUCOSE, URINE (UA) AUTO NEGATIVE (NEGATIVE); KETONE, URINE AUTO NEGATIVE (NEGATIVE); LEUKOCYTE ESTERASE, URINE AUTO 3+ (NEGATIVE); MUCUS, URINE SMALL (NEGATIVE); NITRITE, URINE AUTO POSITIVE (NEGATIVE); PROTEIN, URINE AUTO NEGATIVE (NEGATIVE); RBC, URINE AUTO 7 /HPF (0-3); SQUAMOUS EPITHELIAL CELL UR AU 2 /HPF (0-6); UROBILINOGEN, URINE AUTO 0.2 mg/dL (0.0-2.0); WBC, URINE AUTO TNTC /HPF (0-3)
[2023-05-27 01:28] LABS: PERCENT SATURATION 20.2 % (13.2-45.0)
[2023-05-27 01:32] LABS: CREATININE FOR GFR 1.07 MG/DL (0.55-1.30); GLOMERULAR FILTRATION RATE 51.4 (>32); POTASSIUM SERUM 5.2 MMOL/L (3.5-5.1)
== END ==
LOC: M PLALAB 10:13
PROVIDERS: ATTEND Internal Medicine Hematology
DX: N30.00 Acute cystitis without hematuria (principal); E61.1 Iron deficiency

== ENCOUNTER → 2023-05-30 | Outpatient (CLI) | payer MEDICARE, BC ==
[2023-05-30 15:03] LABS: HEMATOCRIT 32.7 % (36.0-47.0); HEMOGLOBIN 10.7 g/dl (12.0-15.5); MEAN CORPUSCULAR HEMOGLOBIN 30.3 pg (27.0-33.0); MEAN CORPUSCULAR HGB CONC 32.7 g/dl (32.0-36.5); MEAN CORPUSCULAR VOLUME 92.6 fl (80.0-96.0); PLATELET COUNT, AUTOMATED 256 10^3/uL (150-450); RED BLOOD COUNT 3.53 10^6/uL (4.00-5.40)
[2023-05-30 15:10] LABS: HEMOGLOBIN A1c 5.2 % (4.0-6.0)
[2023-05-30 15:29] LABS: C REACTIVE PROTEIN QUANTITATIV < 0.40 MG/DL (<1.0)
[2023-05-30 15:31] LABS: IRON (FE) 57 UG/DL (50-170)
[2023-05-30 15:34] LABS: ALBUMIN 3.7 G/DL (3.2-5.2); ALKALINE PHOSPHATASE 99 U/L (46-116); ALT/SGPT 11 U/L (7.0-40); AST/SGOT 12 U/L (<34); BILIRUBIN,TOTAL 0.5 MG/DL (0.3-1.2); BLOOD UREA NITROGEN 27 MG/DL (9-23); CALCIUM LEVEL 9.3 MG/DL (8.3-10.6); CARBON DIOXIDE LEVEL 29 MMOL/L (20-31); CHLORIDE LEVEL 100 MMOL/L (98-107); CHOLESTEROL LEVEL 177 MG/DL (<200); CHOLESTEROL RISK RATIO 2.96 (<5); CREATININE FOR GFR 1.03 MG/DL (0.55-1.30); FREE T4 1.45 NG/DL (0.89-1.76); GLOMERULAR FILTRATION RATE 53.7 (>32); GLUCOSE, FASTING 106 MG/DL (74-106); HDL CHOLESTEROL 59.6 MG/DL (>40); LDL CHOLESTEROL 91.8 MG/DL (<100); NON-HDL-C 117.4 MG/DL; POTASSIUM SERUM 4.5 MMOL/L (3.5-5.1); SODIUM LEVEL 139 MMOL/L (136-145); THYROID STIMULATING HORMONE 3.805 uIU/ML (0.55-4.78); TOTAL 25(OH) VITAMIN D 39.2 NG/ML (20.0-100.0); TOTAL PROTEIN 6.7 G/DL (5.7-8.2); TRIGLYCERIDES LEVEL 128 MG/DL (<150); VITAMIN B12 LEVEL 411 PG/ML (211-911)
== END ==
LOC: M PLALAB 09:26
PROVIDERS: ATTEND Internal Medicine Hematology
DX: Z00.00 Encounter for general adult medical examination without abnormal findings (principal); I10 Essential (primary) hypertension; R10.30 Lower abdominal pain, unspecified; E03.9 Hypothyroidism, unspecified; E78.00 Pure hypercholesterolemia, unspecified; E55.9 Vitamin D deficiency, unspecified; F41.9 Anxiety disorder, unspecified; M19.90 Unspecified osteoarthritis, unspecified site; M81.0 Age-related osteoporosis without current pathological fracture; R32 Unspecified urinary incontinence; G62.9 Polyneuropathy, unspecified

== ENCOUNTER → 2023-06-23 | Outpatient (CLI) | payer MEDICARE, BC | LOC: M WHC 09:58 | PROVIDERS: ATTEND Internal Medicine Hematology | DX: R10.30 Lower abdominal pain, unspecified (principal) ==

== ENCOUNTER → 2023-09-24 | Outpatient (CLI) | payer MEDICARE, BC ==
[2023-09-24 14:03] LABS: BASO # 0.1 10^3/uL (0.0-0.2); BASO % 0.9 % (0.0-1.0); EOS # 0.2 10^3/uL (0.0-0.5); EOS % 2.2 % (0.0-3.0); HEMATOCRIT 35.5 % (36.0-47.0); HEMOGLOBIN 11.3 g/dl (12.0-15.5); LYMPH # 1.1 10^3/uL (1.5-5.0); LYMPH % 15.7 % (24.0-44.0); MEAN CORPUSCULAR HEMOGLOBIN 29.1 pg (27.0-33.0); MEAN CORPUSCULAR HGB CONC 31.8 g/dl (32.0-36.5); MEAN CORPUSCULAR VOLUME 91.5 fl (80.0-96.0); MONO # 0.5 10^3/uL (0.0-0.8); MONO % 7.6 % (2.0-8.0); NEUTROPHILS % 73.3 % (36.0-66.0); PLATELET COUNT, AUTOMATED 242 10^3/uL (150-450); RED BLOOD COUNT 3.88 10^6/uL (4.00-5.40); WHITE BLOOD COUNT 6.9 10^3/uL (4.0-10.0)
[2023-09-24 14:30] LABS: ALBUMIN 4.1 G/DL (3.2-5.2); BILIRUBIN,TOTAL 0.8 MG/DL (0.3-1.2); CALCIUM LEVEL 9.8 MG/DL (8.3-10.6); CREATININE FOR GFR 0.98 MG/DL (0.55-1.30); GLOMERULAR FILTRATION RATE 56.9 (>32); POTASSIUM SERUM 5.1 MMOL/L (3.5-5.1); TOTAL PROTEIN 7.1 G/DL (5.7-8.2)
== END ==
LOC: M PLALAB 10:16
PROVIDERS: ATTEND Internal Medicine Hematology
DX: Z00.00 Encounter for general adult medical examination without abnormal findings (principal); I10 Essential (primary) hypertension; E55.9 Vitamin D deficiency, unspecified; E04.1 Nontoxic single thyroid nodule; E61.1 Iron deficiency

== ENCOUNTER → 2023-09-30 | Outpatient (REF) | payer MEDICARE, BC ==
[2023-09-30 18:26] LABS: CREATININE, URINE 35.7 MG/DL
[2023-09-30 18:29] LABS: MAU/CREAT RATIO 67.2 MCG/MG (0.0-30.0)
== END ==
LOC: M SFHCPLAZ 16:55
PROVIDERS: ATTEND Internal Medicine Hematology
DX: I10 Essential (primary) hypertension (principal)

== ENCOUNTER → 2023-10-20 | Outpatient (REF) | payer MEDICARE, BC ==
[2023-10-21 13:44] LABS: APPEARANCE, URINE HAZY (CLEAR); BACTERIA, URINE AUTO 1+ (NEGATIVE); BILIRUBIN, URINE AUTO NEGATIVE (NEGATIVE); BLOOD, URINE BLOOD 1+ (NEGATIVE); COLOR, URINE YELLOW (YELLOW); GLUCOSE, URINE (UA) AUTO NEGATIVE (NEGATIVE); KETONE, URINE AUTO NEGATIVE (NEGATIVE); LEUKOCYTE ESTERASE, URINE AUTO 2+ (NEGATIVE); NITRITE, URINE AUTO NEGATIVE (NEGATIVE); PROTEIN, URINE AUTO NEGATIVE (NEGATIVE); RBC, URINE AUTO 1 /HPF (0-3); SPECIFIC GRAVITY URINE AUTO 1.008 (1.002-1.035); SQUAMOUS EPITHELIAL CELL UR AU 1 /HPF (0-6); UROBILINOGEN, URINE AUTO 0.2 mg/dL (0.0-2.0); WBC, URINE AUTO 79 /HPF (0-3)
== END ==
LOC: M SFHCPLAZ 13:23
PROVIDERS: ATTEND Internal Medicine Hematology
DX: N30.00 Acute cystitis without hematuria (principal); B96.20 Unspecified Escherichia coli [E. coli] as the cause of diseases classified elsewhere